=== PATIENT | male | born 1985 | race Two or more races ===

== ENCOUNTER 2021-01-03 10:43 | Emergency (ER) | payer MEDICAID, OTHER ==
[~2021-01-03] VITALS: Ht 172.7 cm; Wt 104.3 kg
[2021-01-03] MEDS ORDERED: TETRACAINE HCL 0.5% OPTH(EYE) SOLN 4ML RIGHTEYE ONE (12:00)
[2021-01-03] MEDS ORDERED: FLUORESCEIN SOD OPTH TEST STRIP RIGHTEYE ONE (12:00)
[2021-01-03 12:22] VITALS: BP 127/84
== END 2021-01-03 12:24 | disposition home or self-care (01) ==
LOC: ER 10:43
DX: S05.01XA Injury of conjunctiva and corneal abrasion without foreign body, right eye, initial encounter (principal); X58.XXXA Exposure to other specified factors, initial encounter; Y93.89 Activity, other specified; Y92.89 Other specified places as the place of occurrence of the external cause; Y99.8 Other external cause status

== ENCOUNTER 2023-03-31 12:47 | Emergency (ER) | payer MEDICAID, OTHER ==
[~2023-03-31] VITALS: Ht 165.1 cm; Wt 110.8 kg
[2023-03-31] MEDS: KETOROLAC TROMETH 60MG/2ML VIAL IM ONE (15:06)
[2023-03-31 15:51] VITALS: BP 130/69; PULSE 102; RESP 18; TEMP 98.2; O2SAT 100
[2023-03-31] MEDS: HYDROcodone-ACET 10/325MG TAB PO ONE (16:49)
[2023-03-31] MEDS: ONDANSETRON ODT 4 MG TAB PO ONE (16:49)
[2023-03-31] MEDS ORDERED: CYCL-839 PO (16:57)
[2023-03-31] MEDS ORDERED: HYDR1TAB97 PO (17:01)
[2023-03-31] MEDS: CYCLOBENZAPRINE HCL 10 MG TAB PO ONE (17:02)
== END 2023-03-31 17:19 | disposition home or self-care (01) ==
LOC: ER 12:47
DX: S43.402A Unspecified sprain of left shoulder joint, initial encounter (principal); Z79.899 Other long term (current) drug therapy; X50.1XXA Overexertion from prolonged static or awkward postures, initial encounter; Y93.89 Activity, other specified; Y92.89 Other specified places as the place of occurrence of the external cause; Y99.8 Other external cause status
CPT/HCPCS: 73200; 96372; 99285; J1885; Q0162

== ENCOUNTER → 2023-10-09 | Outpatient (CLI) | payer BC ==
[~2023-10-09] MED LIST: CYCL-839 PO; HYDR1TAB97 PO
[2023-10-09 15:48] LABS: Urine Bacteria None Seen /hpf (None Seen)
[2023-10-09 15:50] LABS: Basophils # (auto) 0 10 ^3/uL (0-0.2); Basophils % (auto) 0.3 % (0.0-2.0); Eosinophils # (auto) 0.4 10 ^3/uL (0-0.8); Eosinophils % (auto) 4.7 % (0.0-7.0); Hemoglobin 12.3 g/dL (13.5-17.5); Lymphocytes % (auto) 24.3 % (10.0-50.0); Mean Corpuscular Hemoglobin 27.8 pg (28.0-32.0); Mean Corpuscular Hgb Conc. 33.2 g/dL (32.0-36.0); Mean Corpuscular Volume 83.9 fL (80.0-100.0); Monocytes # (auto) 0.7 10 ^3/uL (0-1.3); Monocytes % (auto) 8.8 % (0.0-12.0); Neutrophils # (auto) 5.1 10 ^3/uL (1.6-8.6); Neutrophils % (auto) 61.9 % (37.0-80.0); Platelet Count (auto) 208 10^3/uL (140-450); Red Blood Cells 4.41 10^6/uL (4.5-5.90); Red Cell Distribution Width 14.1 % (11.8-14.3); White Blood Cell 8.3 10^3/uL (4.4-10.8)
[2023-10-09 15:59] LABS: Urine Blood 3+ /uL (Negative); Urine Clarity Clear (Clear); Urine Color Light-Yellow (Yellow); Urine Hyaline Cast FEW /lpf (0 - 2); Urine Mucus FEW (None Seen); Urine Protein, UAD 2+ (Negative); Urine Specific Gravity 1.024 (1.001-1.035); Urine Urobilinogen Normal (Negative); Urine WBC <1 /hpf (0 - 3); Urine pH 5.5 (5.0-9.0)
[2023-10-09 16:25] LABS: Alanine Aminotransferase 21 U/L (7-40); Albumin 3.9 g/dL (3.2-4.8); Alkaline Phosphatase 70 U/L (46-116); Anion Gap 4 (5-15); Aspartate Aminotransferase 19 U/L (13-40); BUN/Creatinine Ratio 12.2 (10.0-20.0); Bilirubin, Total 0.4 mg/dL (0.2-1.0); Blood Urea Nitrogen 14 mg/dL (9-23); Calcium 9.1 mg/dL (8.7-10.4); Carbon Dioxide 23 mmol/L (20-30); Chloride 109 mmol/L (98-107); Glucose 104 mg/dL (74-106); Potassium 3.7 mmol/L (3.5-5.1); Sodium 136 mmol/L (136-145)
[2023-10-09 16:26] LABS: Total Protein 6.8 g/dL (5.7-8.2)
== END | disposition home or self-care (01) ==
LOC: LAB 15:37
PROVIDERS: ATTEND Internal Medicine
DX: Z00.00 Encounter for general adult medical examination without abnormal findings (principal); Z29.9 Encounter for prophylactic measures, unspecified
CPT/HCPCS: 36415; 80053; 81001; 83036; 84439; 84443; 85025

== ENCOUNTER → 2023-11-20 | Outpatient (CLI) | payer BC ==
[2023-11-20 16:26] LABS: Urine Bacteria None Seen /hpf (None Seen)
[2023-11-20 16:57] LABS: Basophils # (auto) 0.1 10 ^3/uL (0-0.2); Basophils % (auto) 1.2 % (0.0-2.0); Eosinophils # (auto) 0.4 10 ^3/uL (0-0.8); Eosinophils % (auto) 4.6 % (0.0-7.0); Hematocrit 33.6 % (41.0-53.0); Hemoglobin 11.5 g/dL (13.5-17.5); Lymphocytes # (auto) 2.1 10 ^3/uL (0.4-5.4); Lymphocytes % (auto) 24.4 % (10.0-50.0); Mean Corpuscular Hemoglobin 28.1 pg (28.0-32.0); Mean Corpuscular Hgb Conc. 34.1 g/dL (32.0-36.0); Mean Corpuscular Volume 82.4 fL (80.0-100.0); Monocytes # (auto) 0.8 10 ^3/uL (0-1.3); Monocytes % (auto) 9.4 % (0.0-12.0); Neutrophils # (auto) 5.1 10 ^3/uL (1.6-8.6); Neutrophils % (auto) 60.4 % (37.0-80.0); Platelet Count (auto) 349 10^3/uL (140-450); Red Blood Cells 4.08 10^6/uL (4.5-5.90); Red Cell Distribution Width 13.4 % (11.8-14.3); White Blood Cell 8.4 10^3/uL (4.4-10.8)
[2023-11-20 17:20] LABS: Alanine Aminotransferase 29 U/L (7-40); Alkaline Phosphatase 65 U/L (46-116); Anion Gap 9 (5-15); Aspartate Aminotransferase 20 U/L (13-40); BUN/Creatinine Ratio 13.1 (10.0-20.0); Blood Urea Nitrogen 17 mg/dL (9-23); Calcium 9.4 mg/dL (8.7-10.4); Carbon Dioxide 24 mmol/L (20-31); Chloride 107 mmol/L (98-107); Creatinine, Urine 192.75 mg/dL (30.0-125.0); Glucose 101 mg/dL (74-106); Potassium 3.6 mmol/L (3.5-5.1); Sodium 140 mmol/L (136-145); Urine Blood 3+ /uL (Negative); Urine Clarity Clear (Clear); Urine Color Light-Yellow (Yellow); Urine Mucus FEW (None Seen); Urine Protein, UAD 2+ (Negative); Urine Specific Gravity 1.023 (1.001-1.035); Urine Urobilinogen Normal (Negative); Urine WBC 11 /hpf (0 - 3); Urine pH 5.5 (5.0-9.0)
[2023-11-20 17:21] LABS: Albumin 4.2 g/dL (3.2-4.8)
[2023-11-20 17:22] LABS: Bilirubin, Total 0.3 mg/dL (0.2-1.0); Creatine Kinase IFCC 68 U/L (46-171); Total Protein 7.4 g/dL (5.7-8.2)
[2023-11-20 17:24] LABS: Protein, Urine 295.8 mg/dL (1-14); Urine Protein/Creatinine Ratio 1.53
[2023-11-20 17:30] LABS: CRP High Sensitivity 2.89 mg/dL (<1.0)
[2023-11-20 17:46] LABS: Erythrocyte Sedimentation Rate 84 mm/hr (0-20)
[2023-11-21 08:06] LABS: Immunoglobulin A 237 mg/dL (90-386); Immunoglobulin G, Serum 1449 mg/dL (603-1613); Immunoglobulin M 170 mg/dL (20-172)
[2023-11-21 10:07] LABS: Albumin 3.1 g/dL (2.9-4.4); Alpha-1-Globulin 0.3 g/dL (0.0-0.4); Alpha-2-Globulin 0.9 g/dL (0.4-1.0); Gamma Globulin 1.4 g/dL (0.4-1.8); Globulin Total 3.5 g/dL (2.2-3.9); Protein Total Serum 6.6 g/dL (6.0-8.5)
[2023-11-22 09:02] LABS: Hepatitis B Surface Antigen Negative (Negative)
[2023-11-22 09:23] LABS: Hepatitis B Core IgM Negative
[2023-11-22 15:07] LABS: Beta-2-Microglobulin 2.4 mg/L (0.6-2.4)
[2023-11-22 19:07] LABS: Antiglomerular BM Antibody <0.2 units (0.0-0.9); Antimyeloperoxidase (MPO) Ab >8.0 units (0.0-0.9); Antiproteinase 3 (PR-3) Ab <0.2 units (0.0-0.9)
[2023-11-23 21:06] LABS: Anticardiolipin IgG Antibody <9 GPL U/mL (0-14); Anticardiolipin IgM Antibody 11 MPL U/mL (0-12)
== END | disposition home or self-care (01) ==
LOC: LAB 15:34
PROVIDERS: ATTEND Internal Medicine Rheumatology
DX: M05.79 Rheumatoid arthritis with rheumatoid factor of multiple sites without organ or systems involvement (principal)
CPT/HCPCS: 36415; 80053; 81001; 82232; 82550; 82570; 82784; 83520; 84155; 84156; 84165; 85025; 85613; 85652; 85670; 85705; 85732; 86141; 86147; 86256; 86334; 86703; 86705; 87340; 87536

== ENCOUNTER → 2024-01-15 | Outpatient (CLI) | payer BC ==
[2024-01-15 11:56] LABS: Basophils # (auto) 0.1 10 ^3/uL (0-0.2); Basophils % (auto) 0.8 % (0.0-2.0); Eosinophils # (auto) 0.2 10 ^3/uL (0-0.8); Eosinophils % (auto) 1.7 % (0.0-7.0); Hematocrit 36.4 % (41.0-53.0); Hemoglobin 12.1 g/dL (13.5-17.5); Lymphocytes # (auto) 2.9 10 ^3/uL (0.4-5.4); Lymphocytes % (auto) 22.1 % (10.0-50.0); Mean Corpuscular Hemoglobin 27.8 pg (28.0-32.0); Mean Corpuscular Hgb Conc. 33.3 g/dL (32.0-36.0); Mean Corpuscular Volume 83.4 fL (80.0-100.0); Monocytes % (auto) 7.8 % (0.0-12.0); Neutrophils % (auto) 67.6 % (37.0-80.0); Nucleated Red Blood Cells % 0.1 %; Platelet Count (auto) 293 10^3/uL (140-450); Red Blood Cells 4.37 10^6/uL (4.5-5.90); Red Cell Distribution Width 14.9 % (11.8-14.3); White Blood Cell 13.3 10^3/uL (4.4-10.8)
[2024-01-15 12:37] LABS: Alanine Aminotransferase 25 U/L (7-40); Albumin 3.8 g/dL (3.2-4.8); Alkaline Phosphatase 64 U/L (46-116); Anion Gap 8 (5-15); Aspartate Aminotransferase 16 U/L (13-40); Bilirubin, Total 0.2 mg/dL (0.2-1.0); Blood Urea Nitrogen 17 mg/dL (9-23); Calcium 9.3 mg/dL (8.7-10.4); Carbon Dioxide 24 mmol/L (20-31); Chloride 109 mmol/L (98-107); Glucose 108 mg/dL (74-106); Potassium 3.7 mmol/L (3.5-5.1); Sodium 141 mmol/L (136-145); Total Protein 6.6 g/dL (5.7-8.2)
[2024-01-15 13:22] LABS: Folate (Folic Acid) 12.56 ng/mL (>5.38)
[2024-01-15 13:23] LABS: Ferritin 98.5 ng/mL (22-322)
== END | disposition home or self-care (01) ==
LOC: LAB 10:58
PROVIDERS: ATTEND Internal Medicine
DX: M06.9 Rheumatoid arthritis, unspecified
CPT/HCPCS: 36415; 80053; 82607; 82728; 82746; 83540; 83550; 83615; 85025

== ENCOUNTER → 2024-03-03 | Outpatient (CLI) | payer BC ==
[2024-03-03 14:49] LABS: Basophils # (auto) 0 10 ^3/uL (0-0.2); Basophils % (auto) 0.5 % (0.0-2.0); Eosinophils # (auto) 0 10 ^3/uL (0-0.8); Eosinophils % (auto) 0.2 % (0.0-7.0); Hemoglobin 12.7 g/dL (13.5-17.5); Lymphocytes # (auto) 0.8 10 ^3/uL (0.4-5.4); Lymphocytes % (auto) 9.9 % (10.0-50.0); Mean Corpuscular Hemoglobin 28.5 pg (28.0-32.0); Mean Corpuscular Hgb Conc. 33.4 g/dL (32.0-36.0); Mean Corpuscular Volume 85.3 fL (80.0-100.0); Monocytes # (auto) 0.4 10 ^3/uL (0-1.3); Neutrophils # (auto) 7.1 10 ^3/uL (1.6-8.6); Neutrophils % (auto) 84.4 % (37.0-80.0); Platelet Count (auto) 249 10^3/uL (140-450); Red Blood Cells 4.46 10^6/uL (4.5-5.90); Red Cell Distribution Width 17.3 % (11.8-14.3); White Blood Cell 8.4 10^3/uL (4.4-10.8)
[2024-03-03 15:02] LABS: INR 0.97 (0.9-1.15); Partial Thromboplastin Time 28.7 SEC (24.5-34.5); Prothrombin Time 10.3 sec (9.3-11.8)
[2024-03-03 15:43] LABS: Alanine Aminotransferase 29 U/L (7-40); Albumin 4.1 g/dL (3.2-4.8); Alkaline Phosphatase 59 U/L (46-116); Anion Gap 7 (5-15); Aspartate Aminotransferase 23 U/L (13-40); BUN/Creatinine Ratio 14.2 (10.0-20.0); Blood Urea Nitrogen 20 mg/dL (9-23); Calcium 9.4 mg/dL (8.7-10.4); Carbon Dioxide 25 mmol/L (20-31); Chloride 107 mmol/L (98-107); Potassium 4.2 mmol/L (3.5-5.1); Sodium 139 mmol/L (136-145)
[2024-03-03 15:44] LABS: Total Protein 6.9 g/dL (5.7-8.2)
[2024-03-03 15:48] LABS: Bilirubin, Total 0.3 mg/dL (0.2-1.0); Glucose 115 mg/dL (74-106)
== END | disposition home or self-care (01) ==
LOC: LAB 14:29
PROVIDERS: ATTEND Internal Medicine
DX: Z01.812 Encounter for preprocedural laboratory examination (principal); N18.2 Chronic kidney disease, stage 2 (mild)
CPT/HCPCS: 36415; 80053; 85025; 85610; 85730

== ENCOUNTER → 2024-03-04 | Outpatient (CLI) | payer BC ==
[2024-03-04] VITALS (8 sets, daily range): BP systolic 97–108; BP diastolic 52–76; PULSE 55–67; RESP 12–21; O2SAT 93–97
[~2024-03-04] MED LIST changes: +MIDAZOLAM HCL 2MG/2ML 2ml VIAL (1mg/ml) IV ONE; +MIDAZOLAM HCL 2MG/2ML 2ml VIAL (1mg/ml) ONE; +TRAM50TA2 PO; +fentaNYL CITRATE 100 MCG/2 ML VL IV ONE; +fentaNYL CITRATE 100 MCG/2 ML VL ONE
--- NOTE | 2024-03-04 10:43 | DVH ---
US US GUIDANCE FOR NEEDLE PLACEME, HISTORY: RHEUMATOID ARTHRITIS , UNSPECIFIED PROCEDURE: Informed consent was obtained. Limited ultrasound of the left kidney was obtained. The ov erlying skin was prepped with chlorhexidine which was allowed to dry and draped in the usual sterile fashion. Time out was performed. The skin and soft tissue were infiltrated with 1% lidocaine, and IV sedation was administered. Under real-time ultrasound guidance, 1 biopsy specimen was obtained using Biopince 18 gauge core biopsy needle. Post biopsy scan was performed. No immediate complication was n oted. SEDATION: Dr. Kendall Feliciano was personally responsible for the administration of moderate sedation during the procedure performed, including the use of an independent trained observer who had no other duties during the procedure. The drugs utilized were IV fentanyl and versed (see nursing log for details). The total time of supervision by the attending physician was approximately 30 minutes. FINDINGS: Limited intraprocedural ultrasound demonstrates biopsy needle within the lower renal cortex of left kidney. No significant post procedural hematoma is noted. IMPRESSION: Ultrasound biopsy of the left kidney. Pathology results pending. 3 hours bedrest supine position recovery.
== END | disposition home or self-care (01) ==
LOC: US 08:42
PROVIDERS: ATTEND Internal Medicine
DX: M06.9 Rheumatoid arthritis, unspecified (principal); R80.9 Proteinuria, unspecified
CPT/HCPCS: 76775; 76942; J2250; J3010

== ENCOUNTER 2024-03-07 09:32 | Inpatient (IN) | payer BC ==
[~2024-03-07] VITALS: Ht 165.1 cm; Wt 244.0 kg
[~2024-03-07 09:32] MED LIST changes: -MIDAZOLAM HCL 2MG/2ML 2ml VIAL (1mg/ml) IV ONE; -MIDAZOLAM HCL 2MG/2ML 2ml VIAL (1mg/ml) ONE; -TRAM50TA2 PO; -fentaNYL CITRATE 100 MCG/2 ML VL IV ONE; -fentaNYL CITRATE 100 MCG/2 ML VL ONE
[2024-03-07 11:03] VITALS: PULSE 78; RESP 17; O2SAT 97
[2024-03-07] MEDS: SODIUM CHLORIDE 0.9% 1,000 ML IV ONE (11:17)
[2024-03-07 11:28] LABS: Urine Bacteria None Seen /hpf (None Seen)
--- NOTE | 2024-03-07 11:33 | ED.PDOC ---
History of Present Illness HPI Comments 38 year old male presents to the ED with a chief complaint of abnormal lab values onset today. Patient states he was called by Dr. Ivy, was told lab results and biopsy results were abnormal and was told to come to ED for an admission. Patient has no complaints. PMHx RA. No other symptoms or modifying factors present at this time. 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 03/31/23 Cyclobenzaprine Hcl (Cyclobenzaprine Hcl) 10 Mg Tab, 10 MG PO TID, #12 TAB 0 Refills Prov:DHARMESH IGLESIAS [facility] 03/31/23 Reported Medications Tramadol Hcl (Tramadol Hcl) 50 Mg Tab, 50 MG PO Q6HP for pain, MG 03/07/24 Information Source: Patient Mode of Arrival: Ambulatory Severity: Moderate Timing: Hours Duration: Since onset Prehospital treatment: None Past Medical History PAST MEDICAL HISTORY: Arthritis Surgical History: Denies all surgeries Family History Family History: Unknown Social History Smoker: Non-Smoker Alcohol: Denies ETOH Use Drugs: Denies Drug Use Lives In: Home Constitutional: denies: chills, diaphoresis, fatigue, fever, malaise, sweats, weakness, others EENTM: denies: blurred vision, double vision, ear bleeding, ear discharge, ear drainage, ear pain, ear ringing, eye pain, eye redness, hearing loss, mouth pa in, mouth swelling, nasal discharge, nose bleeding, nose congestion, nose pain, photophobia, tearing, throat pain, throat swelling, voice changes, others Respiratory: denies: cough, hemoptysis, orthopnea, SOB at rest, shortness of breath, SOB with excertion, stridor, wheezing, others Cardiovascular: denies: chest pain, dizzy spells, diaphoresis, Dyspnea on exertion, edema, irregular heart beat, left arm pain, lightheadedness, palpitations, PND, syncope, others Gastrointestinal: denies: abdomen distended, abdominal pain, blood streaked bowels, constipated, diarrhea, dysphagia, difficulty swallowing, hematemesis, melena, nausea, poor appetite, poor fluid intake, rectal bleeding, rectal pain, vomiting, others Genitourinary: denies: burning, dysuria, flank pain, frequency, hematuria, incontinence, penile discharge, penile sore, pain, testicle pain, testicle swelling, urgency, others Neurological: denies: dizziness, fainting, headache, left sided numbness, left sided weakness, numbness, paresthesia, pre-existing deficit, right sided numbness, right sided weakness, seizure, speech problems, tingling, tremors, weakness, others Musculoskeletal: denies: back pain, gout, joint pain, joint swelling, muscle pain, muscle stiffness, neck pain, others Integumetry: denies: bruises, change in color, change in hair/nails, dryness, laceration, lesions, lumps, rash, wounds, others Allergic/Immunocompromised: denies: Difficulty Healing, Frequent Infections, Hives, Itching, others Hematologic/Lymphatic: denies: anemia, blood clots, easy bleeding, easy bruising, swollen glands, others Endocrine: denies: excessive hunger, excessive sweating, excessive thirst, excessive urination, flushing, intolerance to cold, intolerance to heat, unexplained weight gain, unexplained weight loss, others Psychiatric: denies: anxiety, bipolar disorder, depression, hopeless, panic disorder, schizophrenia, sleepless, suicidal, others All Other Systems: Reviewed and Negative Physical Exam General Appearance: Mild Distress HEENT: Normal ENT Inspection, Pharynx Normal, TMs Normal Neck: Full Range of Motion, Non-Tender, Normal, Normal Inspection Respiratory: Chest Non-Tender, Lungs Clear, No Accessory Muscle Use, No Respiratory Distress, Normal Breath Sounds Cardiovascular: No Edema, No JVD, No Murmur, No Gallop, Normal Peripheral Pulses, Regular Rate/Rhythm Breast Exam: Deferred Gastrointestinal: No Organomegaly, Non Tender, No Pulsatile Mass, Normal Bowel Sounds, Soft, Other (Flank pain) Genitalia: Deferred Pelvic: Deferred Rectal: Deferred Extremities: No calf tenderness, Normal capillary refill, Normal inspection, Normal range of motion, Non-tender, No pedal edema Neurologic: Alert, consultant electronics II-XII nml as Tested, No Motor Deficits, Normal Affect, Normal Mood, No Sensory Deficits Cerebellar Function: Normal Reflexes: Normal Skin: Dry, Normal Color, Warm Peripheral Pulses: 1+ carotid (R), 1+ carotid (L) Lymphatic: No Adenopathy Was a procedure done? Was a procedure done?: No EKG EKG : Pulse Rate (adult): 72 [place]: Normal Cardiac Rhythm: NSR Block: RBBB Differential Dx Considerations may include: Flank pain hematuria kidney stone renal failure pyelonephritis status post biopsy X-Ray, Labs, Meds, VS Vital Signs Date Time Temp Pulse Resp B/P (MAP) Pulse Ox O2 Delivery O2 Flow Rate FiO2 03/07/24 11:07 97.6 78 17 117/83 (94) 97 97.6 03/07/24 11:07 78 17 97 Room Air 03/07/24 11:03 78 17 97 Room Air* 0 21 03/07/24 10:05 98.0 84 18 105/88 (94) 97 Lab Test 03/07/24 11:30 03/07/24 11:20 Range/Units White Blood Count 12.5 #H 4.4-10.8 10^3/uL Red Blood Count 4.56 4.5-5.90 10^6/uL Hemoglobin 13.1 L 13.5-17.5 g/dL Hematocrit 39.0 L 41.0-53.0 % Mean Corpuscular Volume 85.4 80.0-100.0 fL Mean Corpuscular Hemoglobin 28.7 28.0-32.0 pg Mean Corpuscular Hemoglobin Concent 33.6 32.0-36.0 g/dL Red Cell Distribution Width 17.5 H 11.8-14.3 % Platelet Count 250 140-450 10^3/uL Mean Platelet Volume 9.3 6.9-10.8 fL Neutrophils (%) (Auto) 66.1 37.0-80.0 % Lymphocytes (%) (Auto) 20.3 10.0-50.0 % Monocytes (%) (Auto) 10.9 0.0-12.0 % Eosinophils (%) (Auto) 1.6 0.0-7.0 % Basophils (%) (Auto) 1.1 0.0-2.0 % Neutrophils # (Auto) 8.2 1.6-8.6 10 ^3/uL Lymphocytes # (Auto) 2.5 0.4-5.4 10 ^3/uL Monocytes # (Auto) 1.4 H 0-1.3 10 ^3/uL Eosinophils # (Auto) 0.2 0-0.8 10 ^3/uL Basophils # (Auto) 0.1 0-0.2 10 ^3/uL Nucleated Red Blood Cells 0.1 % Sodium Level 141 136-145 mmol/L Potassium Level 3.7 3.5-5.1 mmol/L Chloride Level 108 H 98-107 mmol/L Carbon Dioxide Level 26 20-31 mmol/L Anion Gap 7 5-15 Blood Urea Nitrogen 19 9-23 mg/dL Creatinine 1.22 0.700-1.30 mg/dL Glomerular Filtration Rate Calc 78 >90 mL/min BUN/Creatinine Ratio 15.6 10.0-20.0 Serum Glucose 100 74-106 mg/dL Calcium Level 9.6 8.7-10.4 mg/dL Magnesium Level 1.8 1.6-2.6 mg/dL Total Bilirubin 0.6 0.2-1.0 mg/dL Aspartate Amino Transferase (AST) 19 13-40 U/L Alanine Aminotransferase (ALT) 23 7-40 U/L Alkaline Phosphatase 57 46-116 U/L Total Protein 6.5 5.7-8.2 g/dL Albumin 3.8 3.2-4.8 g/dL Lipase 36 12-53 U/L Hepatitis A IgM Antibody Pending Hepatitis B Surface Antigen Pending Hepatitis B Core IgM Antibody Pending Hepatitis C Antibody Pending Urine Color Light-yellow Yellow Urine Clarity Clear Clear Urine pH 5.5 5.0-9.0 Urine Specific [place] 1.016 1.001-1.035 Urine Protein 2+ H Negative Urine Ketones Negative Negative Urine Blood 3+ H Negative /uL Urine Nitrite Negative Negative Urine Bilirubin Negative Negative Urine Urobilinogen Normal Negative mg/dL Urine Leukocyte Esterase Negative Negative /uL Urine RBC 5 0 - 3 /hpf Urine WBC 3 0 - 3 /hpf Urine Squamous Epithelial Cells None seen <5 /hpf Urine Bacteria None seen None Seen /hpf Urine Hyaline Casts Few 0 - 2 /lpf Urine Mucus Few None Seen Urine Glucose Normal Normal mg/dL [facility] [id number] [facility] [address] Ph: [phone] DIAGNOSTIC IMAGING Diagnostic Imaging Report : [id number] Signed PATIENT: ISSA ANDERSON ACCT: [id number] UNIT: [id number] : 1985 LOC: ER ROOM / BED: / AGE / SEX: 38 / M ADM STATUS: REG ER SERVICE [id number] ORDERING PHYSICIAN: SUSANA BECK MD PROCEDURE(s): CXR2 - CHEST TWO VIEWS ROUTINE REASON: Renal failure ORDER NUMBER(s): [id number], ACCESSION NUMBER(s): [id number] CHEST RADIOGRAPH Indication: Renal failure Technique: Frontal and lateral view of the chest was obtained Comparison: CT scan of the chest dated 01/16/24 was not made available on the PAC system for viewing. FINDINGS: No pneumothorax, pulmonary edema, or consolidative infiltrates. There is central peribronchial thickening. The heart is upper limits of normal in size. There is moderate thoracic degenerative disc disease. There may be mild chronic compression fractures of T11 and L1. IMPRESSION: 1. Mild reactive airways disease. The lungs are otherwise clear. 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 from his busperson Time of 1ST Reevaluation: 11:17 Reevaluation 1ST: Unchanged Patient Education/Counseling: Diagnosis, Treatment, Prognosis Family Education/Counseling: No Family Present Additional Information The following tests were ordered, and results were reviewed by me: EKG, CBC, CMP, LIPASE, UA, MAGNESIUM, XY CHEST 2 VIEWS, I reviewed and agreed with the following test results read by other providers: XR CHEST 2 VIEWS I discussed treatment and results with medical personnel and: patient Departure 1 Departure Time of Disposition: 13:14 Impression: Primary Impression: Rheumatoid arthritis Qualified Codes: M05.761 - Rheumatoid arthritis with rheumatoid factor of right knee without organ or systems involvement Additional Impression: Flank pain Ruled Out: Renal failure Disposition: ADMITTED INPATIENT Admit to: Med Surg Condition: Fair Critical Care Note Critical Care Time?: No Stability Stability form required: No Heart Score Heart Score: Heart Score Response (Comments) Value History Slightly Suspicious 0 EKG Normal 0 Age <45 0 Risk Factors 1 or 2 risk factors 1 Troponin N/A 0 Total 1 I personally scribed for SUSANA BECK MD ([email or web address]) on 03/07/24 at 11:33. Electronically submitted by Katherine Valiente ([email or web address]). I personally scribed for SUSANA BECK MD ([email or web address]) on 03/07/24 at 12:34. Electronically submitted by Katherine Valiente ([email or web address]). SUSANA BECK MD Mar 07, 2024 11:33
[2024-03-07 11:52] LABS: Basophils # (auto) 0.1 10 ^3/uL (0-0.2); Basophils % (auto) 1.1 % (0.0-2.0); Eosinophils # (auto) 0.2 10 ^3/uL (0-0.8); Eosinophils % (auto) 1.6 % (0.0-7.0); Hemoglobin 13.1 g/dL (13.5-17.5); Lymphocytes # (auto) 2.5 10 ^3/uL (0.4-5.4); Lymphocytes % (auto) 20.3 % (10.0-50.0); Mean Corpuscular Hemoglobin 28.7 pg (28.0-32.0); Mean Corpuscular Hgb Conc. 33.6 g/dL (32.0-36.0); Mean Corpuscular Volume 85.4 fL (80.0-100.0); Monocytes # (auto) 1.4 10 ^3/uL (0-1.3); Monocytes % (auto) 10.9 % (0.0-12.0); Neutrophils # (auto) 8.2 10 ^3/uL (1.6-8.6); Neutrophils % (auto) 66.1 % (37.0-80.0); Nucleated Red Blood Cells % 0.1 %; Platelet Count (auto) 250 10^3/uL (140-450); Red Blood Cells 4.56 10^6/uL (4.5-5.90); Red Cell Distribution Width 17.5 % (11.8-14.3); White Blood Cell 12.5 10^3/uL (4.4-10.8)
[2024-03-07 11:56] LABS: Urine Blood 3+ /uL (Negative); Urine Clarity Clear (Clear); Urine Color Light-Yellow (Yellow); Urine Hyaline Cast FEW /lpf (0 - 2); Urine Mucus FEW (None Seen); Urine Protein, UAD 2+ (Negative); Urine Specific Gravity 1.016 (1.001-1.035); Urine Squamous Epithelial Cell None Seen /hpf (<5); Urine Urobilinogen Normal (Negative); Urine WBC 3 /hpf (0 - 3); Urine pH 5.5 (5.0-9.0)
[2024-03-07 12:07] LABS: Alanine Aminotransferase 23 U/L (7-40); Albumin 3.8 g/dL (3.2-4.8); Alkaline Phosphatase 57 U/L (46-116); Anion Gap 7 (5-15); Aspartate Aminotransferase 19 U/L (13-40); BUN/Creatinine Ratio 15.6 (10.0-20.0); Blood Urea Nitrogen 19 mg/dL (9-23); Calcium 9.6 mg/dL (8.7-10.4); Carbon Dioxide 26 mmol/L (20-31); Glucose 100 mg/dL (74-106); Lipase 36 U/L (12-53); Magnesium 1.8 mg/dL (1.6-2.6); Potassium 3.7 mmol/L (3.5-5.1); Sodium 141 mmol/L (136-145)
[2024-03-07 12:08] LABS: Bilirubin, Total 0.6 mg/dL (0.2-1.0); Total Protein 6.5 g/dL (5.7-8.2)
[2024-03-07 12:11] LABS: Chloride 108 mmol/L (98-107)
--- NOTE | 2024-03-07 12:19 | DVH ---
CHEST RADIOGRAPH Indication: Renal failure Technique: Frontal and lateral view of the chest was obtained Comparison: CT scan of the chest dated 01/16/24 was not made available on the PAC system for viewing . FINDINGS: No pneumothorax, pulmonary edema, or consolidative infiltrates. There is central peribronchial thick ening. The heart is upper limits of normal in size. There is moderate thoracic degenerative disc di sease. There may be mild chronic compression fractures of T11 and L1. IMPRESSION: 1. Mild reactive airways disease. The lungs are otherwise clear.
[2024-03-07] MEDS ORDERED: methylPREDNISolone SOD SUCC 125 MG/2 ML VL IV ONE (12:30)
[2024-03-07] MEDS ORDERED: RITUXIMAB 1000 MG IV ONE (12:45)
[2024-03-07] MEDS ORDERED: IBUPROFEN 600 MG TAB PO PRN (13:00)
--- NOTE | 2024-03-07 13:21 | DVHHP2 ---
History of Present Illness Reason for Visit: Abnormal labs History of Present Illness Ella Jasso is a 38-year-old male with a past medical history of autoimmune nephritis, microscopic polyarteritis and rheumatoid arthritis who presents with abnormal labs and biopsy results yesterday. Patient reports that his doctor advised him that he was going to start on rituximab. Patient denies of any chest pain, shortness of breath, abdominal pain, fever, chills, nausea, vomiting, diarrhea, and weakness. Rheumatologic: Rheumatoid arthritis Past Medical History Autoimmune nephritis Microscopic polyarteritis Past Surgical History: None Family History: None Smoke: No ALCOHOL: none Drugs: None Lives: with Family Domestic Violence: Neg Review of Systems Constitutional: No: Fever, Chills, Sweats, Weakness, Malaise, Other Eyes: No: Pain, Vision change, Conjunctivae inflammation, Eyelid inflammation, Other, Redness ENT: No: Ear pain, Ear discharge, Nose pain, Nose discharge, Nose congestion, Mouth pain, Mouth swelling, Throat pain, Throat swelling, Other Respiratory: No: Cough, Dry, Shortness of breath, SOB with excertion, Wheezing, Hemoptysis, Pleuritic Pain, Sputum, Wheezing, Other Cardiovascular: No: Chest Pain, Palpitations, Orthopnea, Paroxysmal Noc. Dyspnea, Edema, Lt Headedness, Other Gastrointestinal: No: Nausea, Vomiting, Abdominal Pain, Diarrhea, Constipation, Melena, Hematochezia, Other Genitourinary: No Dysuria, No Frequency, No Incontinence, No Hematuria, No Retention, No Other Musculoskeletal: No: other, neck pain, shoulder pain, arm pain, back pain, hand pain, leg pain, foot pain Skin: No: Rash, Lesions, Jaundice, Bruising, Other Neurological: No: Weakness, Numbness, Incoordination, Change in speech, Confusion, Seizures, Other Allergies: Coded Allergies: NO KNOWN ALLERGIES (Unverified , 01/03/21) Medications Current Medications Medications Dose Ordered Sig/[place] Route Start Time Stop Time Status Last Admin Dose Admin Methylprednisolone Sodium Succinate 1,000 mg ONCE IV 03/07/24 12:30 03/09/24 12:31 UNV Exam Vital Signs Vital Signs Date Time Temp Pulse Resp B/P (MAP) Pulse Ox O2 Delivery O2 Flow Rate FiO2 03/07/24 11:07 97.6 78 17 117/83 (94) 97 97.6 03/07/24 11:07 Room Air 03/07/24 11:03 0 21 General Appearance: Alert, Oriented X3, Cooperative, mild distress HEENT: Atraumatic, PERRLA, EOMI, Mucous membr. moist/pink Respiratory: Normal air movement Cardiovascular: Normal S1, Normal S2, No murmurs Abdominal: Normal bowel sounds, Soft, No tenderness, No hepatospenomegaly, No masses Skin: No significant lesion Neuro: Normal gait, Normal speech, Strength at 5/5 X4 ext, Normal tone, Sensa tion intact Psych/Mental Status: Mental status NL, Mood NL Labs/Xrays Labs Test 03/07/24 11:30 03/07/24 11:20 Range/Units White Blood Count 12.5 #H 4.4-10.8 10^3/uL Red Blood Count 4.56 4.5-5.90 10^6/uL Hemoglobin 13.1 L 13.5-17.5 g/dL Hematocrit 39.0 L 41.0-53.0 % Mean Corpuscular Volume 85.4 80.0-100.0 fL Mean Corpuscular Hemoglobin 28.7 28.0-32.0 pg Mean Corpuscular Hemoglobin Concent 33.6 32.0-36.0 g/dL Red Cell Distribution Width 17.5 H 11.8-14.3 % Platelet Count 250 140-450 10^3/uL Mean Platelet Volume 9.3 6.9-10.8 fL Neutrophils (%) (Auto) 66.1 37.0-80.0 % Lymphocytes (%) (Auto) 20.3 10.0-50.0 % Monocytes (%) (Auto) 10.9 0.0-12.0 % Eosinophils (%) (Auto) 1.6 0.0-7.0 % Basophils (%) (Auto) 1.1 0.0-2.0 % Neutrophils # (Auto) 8.2 1.6-8.6 10 ^3/uL Lymphocytes # (Auto) 2.5 0.4-5.4 10 ^3/uL Monocytes # (Auto) 1.4 H 0-1.3 10 ^3/uL Eosinophils # (Auto) 0.2 0-0.8 10 ^3/uL Basophils # (Auto) 0.1 0-0.2 10 ^3/uL Nucleated Red Blood Cells 0.1 % Sodium Level 141 136-145 mmol/L Potassium Level 3.7 3.5-5.1 mmol/L Chloride Level 108 H 98-107 mmol/L Carbon Dioxide Level 26 20-31 mmol/L Anion Gap 7 5-15 Blood Urea Nitrogen 19 9-23 mg/dL Creatinine 1.22 0.700-1.30 mg/dL Glomerular Filtration Rate Calc 78 >90 mL/min BUN/Creatinine Ratio 15.6 10.0-20.0 Serum Glucose 100 74-106 mg/dL Calcium Level 9.6 8.7-10.4 mg/dL Magnesium Level 1.8 1.6-2.6 mg/dL Total Bilirubin 0.6 0.2-1.0 mg/dL Aspartate Amino Transferase (AST) 19 13-40 U/L Alanine Aminotransferase (ALT) 23 7-40 U/L Alkaline Phosphatase 57 46-116 U/L Total Protein 6.5 5.7-8.2 g/dL Albumin 3.8 3.2-4.8 g/dL Lipase 36 12-53 U/L Urine Color Light-yellow Yellow Urine Clarity Clear Clear Urine pH 5.5 5.0-9.0 Urine Specific [place] 1.016 1.001-1.035 Urine Protein 2+ H Negative Urine Ketones Negative Negative Urine Blood 3+ H Negative /uL Urine Nitrite Negative Negative Urine Bilirubin Negative Negative Urine Urobilinogen Normal Negative mg/dL Urine Leukocyte Esterase Negative Negative /uL Urine RBC 5 0 - 3 /hpf Urine WBC 3 0 - 3 /hpf Urine Squamous Epithelial Cells None seen <5 /hpf Urine Bacteria None seen None Seen /hpf Urine Hyaline Casts Few 0 - 2 /lpf Urine Mucus Few None Seen Urine Glucose Normal Normal mg/dL CHEST RADIOGRAPH Indication: Renal failure Technique: Frontal and lateral view of the chest was obtained Comparison: CT scan of the chest dated 01/16/24 was not made available on the PAC system for viewing. FINDINGS: No pneumothorax, pulmonary edema, or consolidative infiltrates. There is central peribronchial thickening. The heart is upper limits of normal in size. There is moderate thoracic degenerative disc disease. There may be mild chronic compression fractures of T11 and L1. IMPRESSION: 1. Mild reactive airways disease. The lungs are otherwise clear. Assessment/Plan Assessment/Plan Assessment/Plan: Autoimmune nephritis Rheumatoid arthritis Microscopic polyarteritis Leukocytosis likely due to biopsy recently Hematuria Proteinuria Chest x-ray IV Solu-Medrol given in ED EKG Magnesium level UA Lipase Labs A.m. labs Rheumatology consult Nephrology consult Hepatitis panel Antiemetics Pain management IV antibiotics-ceftriaxone Morbid Obesity Counseled patient on lifestyle medications, diet, and exercise FEN/PPX cardiac diet hl DVT ppx -not indicated patient ambulating PUD ppx -no history of GERD or GI bleed Home medications reconciled Discussed plan of care with patient and nurse Admit to [facility] [place] Plan discussed with: Patient My Orders Orders - ELISABETH MOSQUEDA Procedure Category Date Status Time Allergies CATHRYN 03/07/24 Verified 12:49 Complete Blood Count LAB 03/08/24 Verified 04:00 Comprehensive LAB 03/08/24 Verified Metabolic Panel 04:00 Cardiac DIET 03/07/24 Verified Diet-2gna,Lofat,Lochol Lunch Admit ADMIT 03/07/24 Verified 12:49 Allergies CATHRYN 03/07/24 Verified 12:49 Code Status CODE 03/07/24 Verified 12:49 Date of Service: Mar 07, 2024 Billing Provider: ELISABETH MOSQUEDA Common Visit Codes: [id number] INP/OBS CARE (HIGH) ELISABETH MOSQUEDA Mar 07, 2024 13:21
[2024-03-07] MEDS ORDERED: ACETAMINOPHEN 325 MG TAB PO PRN (13:30)
[2024-03-07] MEDS ORDERED: ONDANSETRON HCL 4 MG/2 ML VIAL IV PRN (13:30)
[2024-03-07 13:44] VITALS: BP 113/79; PULSE 72; RESP 18; TEMP 98.2; O2SAT 97
[2024-03-07] MEDS: cefTRIAXone 1GM/50ML D5W 50 ML IV ONE (14:41)
[2024-03-07] MEDS ORDERED: methylPREDNISolone SOD SUCC 1,000 MG VL IV ONE (15:15)
[2024-03-07] MEDS: methylPREDNISolone SOD SUCC 1,000 MG in SODIUM CHL 0.9% 250 ML IV ONE (16:06)
[2024-03-07 17:40] VITALS: BP 139/86; PULSE 68; RESP 18; TEMP 98; O2SAT 100
[2024-03-07] MEDS ORDERED: TRAM50TA2 PO (17:59)
--- NOTE | 2024-03-07 20:45 | DVHINCON2 ---
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 Past Medical History As per HPI Past Surgical History Denies any Allergies: Coded Allergies: NO KNOWN ALLERGIES (Unverified , 01/03/21) Home Meds Active Scripts Hydrocodone-Acetaminophen (Hydrocodone/Acetaminophen 5-325 mg) 1 Tab Tab, 1 TAB PO Q6HPRN PRN, #12 TAB 0 Refills Prov:DHARMESH IGLESIAS [facility] 03/31/23 Cyclobenzaprine Hcl (Cyclobenzaprine Hcl) 10 Mg Tab, 10 MG PO TID, #12 TAB 0 Re fills Prov:DHARMESH IGLESIAS [facility] 03/31/23 Reported Medications Tramadol Hcl (Tramadol Hcl) 50 Mg Tab, 50 MG PO Q6HP for pain, MG 03/07/24 Current Medications Current Medications Medications (Trade) Dose Ordered Sig/Gustabo Route PRN Reason Start Time Stop Time Status Last Admin Ibuprofen (Motrin Tablet) 600 mg Q8HP PRN PO MILD PAIN (1-3 PAIN SCALE) 03/07/24 13:00 03/07/24 13:14 DC Ceftriaxone Sodium 50 ml @ 100 mls/hr DAILY@09 IV 03/08/24 09:00 Ondansetron HCl (Zofran) 4 mg Q6HPRN PRN IV NAUSEA / VOMITING 03/07/24 13:30 Acetaminophen (Tylenol Tablet) 650 mg Q4HP PRN PO MILD PAIN (1-3 PAIN SCALE) 03/07/24 13:30 Family History: Patient reports no known family medical history. Family History Patient has two daughters 10 and 8years old Social History Denies any Review of Systems HEENT-denies headache, denies vision changes, no hearing issue, denies neck complaints, denies throat issues Respiratory system-denies cough, denies shortness of breath Cardiovascular system-denies chest pain, denies palpitations Abdomen-denies abdominal pain, denies nausea, denies vomiting, denies constipation or diarrhea Musculoskeletal-positive pain in both hands, redness and tenderness fingers Genitourinary-denies urinary symptoms like dysuria, stream issues Neuro-denies dizziness, denies seizures Psychiatric-denies psychiatric history H&P Exam Vital Signs/I&O Vital Sign Date Time Temp Pulse Resp B/P (MAP) Pulse Ox O2 Delivery O2 Flow Rate FiO2 03/07/24 17:40 98.0 68 18 139/86 (103) 100 98.0 03/07/24 13:44 Room Air* 0 21 Physical Exam General-not in any distress HEENT-normocephalic, no icterus, no pallor, neck supple Respiratory-fair air entry bilateral, no rhonchi, no wheeze [id number] heard, no murmurs appreciated Abdominal-soft, nontender, nondistended Musculoskeletal-bilateral hands swelling redness tender Genitourinary-deferred Neuro-awake alert oriented x3, Psychiatric-not agitated, cooperative, Labs/Diagnostic Data Labs/Diagnostic Data Laboratory Tests Test 03/07/24 11:30 03/07/24 11:20 Range/Units White Blood Count 12.5 #H 4.4-10.8 10^3/uL Red Blood Count 4.56 4.5-5.90 10^6/uL Hemoglobin 13.1 L 13.5-17.5 g/dL Hematocrit 39.0 L 41.0-53.0 % Mean Corpuscular Volume 85.4 80.0-100.0 fL Mean Corpuscular Hemoglobin 28.7 28.0-32.0 pg Mean Corpuscular Hemoglobin Concent 33.6 32.0-36.0 g/dL Red Cell Distribution Width 17.5 H 11.8-14.3 % Platelet Count 250 140-450 10^3/uL Mean Platelet Volume 9.3 6.9-10.8 fL Neutrophils (%) (Auto) 66.1 37.0-80.0 % Lymphocytes (%) (Auto) 20.3 10.0-50.0 % Monocytes (%) (Auto) 10.9 0.0-12.0 % Eosinophils (%) (Auto) 1.6 0.0-7.0 % Basophils (%) (Auto) 1.1 0.0-2.0 % Neutrophils # (Auto) 8.2 1.6-8.6 10 ^3/uL Lymphocytes # (Auto) 2.5 0.4-5.4 10 ^3/uL Monocytes # (Auto) 1.4 H 0-1.3 10 ^3/uL Eosinophils # (Auto) 0.2 0-0.8 10 ^3/uL Basophils # (Auto) 0.1 0-0.2 10 ^3/uL Nucleated Red Blood Cells 0.1 % Sodium Level 141 136-145 mmol/L Potassium Level 3.7 3.5-5.1 mmol/L Chloride Level 108 H 98-107 mmol/L Carbon Dioxide Level 26 20-31 mmol/L Anion Gap 7 5-15 Blood Urea Nitrogen 19 9-23 mg/dL Creatinine 1.22 0.700-1.30 mg/dL Glomerular Filtration Rate Calc 78 >90 mL/min BUN/Creatinine Ratio 15.6 10.0-20.0 Serum Glucose 100 74-106 mg/dL Calcium Level 9.6 8.7-10.4 mg/dL Magnesium Level 1.8 1.6-2.6 mg/dL Total Bilirubin 0.6 0.2-1.0 mg/dL Aspartate Amino Transferase (AST) 19 13-40 U/L Alanine Aminotransferase (ALT) 23 7-40 U/L Alkaline Phosphatase 57 46-116 U/L Total Protein 6.5 5.7-8.2 g/dL Albumin 3.8 3.2-4.8 g/dL Lipase 36 12-53 U/L Urine Color Light-yellow Yellow Urine Clarity Clear Clear Urine pH 5.5 5.0-9.0 Urine Specific [place] 1.016 1.001-1.035 Urine Protein 2+ H Negative Urine Ketones Negative Negative Urine Blood 3+ H Negative /uL Urine Nitrite Negative Negative Urine Bilirubin Negative Negative Urine Urobilinogen Normal Negative mg/dL Urine Leukocyte Esterase Negative Negative /uL Urine RBC 5 0 - 3 /hpf Urine WBC 3 0 - 3 /hpf Urine Squamous Epithelial Cells None seen <5 /hpf Urine Bacteria None seen None Seen /hpf Urine Hyaline Casts Few 0 - 2 /lpf Urine Mucus Few None Seen Urine Glucose Normal Normal mg/dL Assessment 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
[2024-03-07 21:00] VITALS: BP 103/67; PULSE 75; RESP 18; TEMP 98; O2SAT 98
[2024-03-08 01:00] VITALS: BP 109/70; PULSE 76; RESP 18; TEMP 97.8; O2SAT 97
[2024-03-08] MEDS: traMADol HCL 50 MG TAB PO PRN (01:43)
[2024-03-08 05:00] VITALS: BP 113/69; PULSE 75; RESP 18; TEMP 98; O2SAT 95
[2024-03-08 07:23] LABS: Alanine Aminotransferase 26 U/L (7-40); Alkaline Phosphatase 57 U/L (46-116); Anion Gap 10 (5-15); BUN/Creatinine Ratio 19.8 (10.0-20.0); Blood Urea Nitrogen 23 mg/dL (9-23); Calcium 9.8 mg/dL (8.7-10.4); Carbon Dioxide 23 mmol/L (20-31); Chloride 105 mmol/L (98-107); Potassium 4.1 mmol/L (3.5-5.1); Sodium 138 mmol/L (136-145)
[2024-03-08 07:24] LABS: Aspartate Aminotransferase 18 U/L (13-40); Bilirubin, Total 0.6 mg/dL (0.2-1.0); Total Protein 6.6 g/dL (5.7-8.2)
[2024-03-08 07:25] LABS: Glucose 129 mg/dL (74-106)
[2024-03-08 07:28] LABS: Basophils # (auto) 0 10 ^3/uL (0-0.2); Basophils % (auto) 0.1 % (0.0-2.0); Eosinophils # (auto) 0 10 ^3/uL (0-0.8); Hematocrit 39.1 % (41.0-53.0); Hemoglobin 12.9 g/dL (13.5-17.5); Lymphocytes # (auto) 1.1 10 ^3/uL (0.4-5.4); Lymphocytes % (auto) 8.5 % (10.0-50.0); Mean Corpuscular Hemoglobin 27.9 pg (28.0-32.0); Mean Corpuscular Volume 84.7 fL (80.0-100.0); Monocytes # (auto) 0.1 10 ^3/uL (0-1.3); Monocytes % (auto) 0.8 % (0.0-12.0); Neutrophils # (auto) 12.2 10 ^3/uL (1.6-8.6); Neutrophils % (auto) 90.6 % (37.0-80.0); Nucleated Red Blood Cells % 0.1 %; Platelet Count (auto) 249 10^3/uL (140-450); Red Blood Cells 4.61 10^6/uL (4.5-5.90); Red Cell Distribution Width 17.4 % (11.8-14.3); White Blood Cell 13.4 10^3/uL (4.4-10.8)
--- NOTE | 2024-03-08 08:02 | DVHPN2 ---
Subjective Decreasing hand swelling and pain; more urine output Reviewed: Care Plan, H&P, Labs, Medications, Previous Orders, Radiology, Other (Consultations) Changes from previous H/P or p: Changes Objective Vitals Vital Signs Date Time Temp Pulse Resp B/P (MAP) Pulse Ox O2 Delivery O2 Flow Rate FiO2 03/08/24 05:00 98.0 75 18 113/69 (84) 95 98.0 03/07/24 20:00 Room Air* 0 21 Intake/Output Intake and Output 03/08/24 07:00 Intake Total 500 ml Balance 500 ml Intake Oral 500 ml # Voids 2 # Bowel Movements 1 General Appearance: Alert, Oriented X3, Cooperative, No acute distress HEENT: Atraumatic Lungs: Clear to auscultation, Normal air movement Cardiovascular: Regular rate, Normal S1, Normal S2 Abdomen: Normal bowel sounds, Soft, No tenderness Extremities: Other (Decreasing hands swelling and tenderness) Neuro: Normal gait, Normal speech, Strength at 5/5 X4 ext, Normal tone, S ensation intact, Cranial nerves 3-12 NL Psych/Mental Status: Mental status NL, Mood NL Medications Current Medications Medications Dose Ordered Sig/Gustabo Route Start Time Stop Time Status Last Admin Dose Admin Ceftriaxone Sodium 50 ml @ 100 mls/hr DAILY@09 IV 03/08/24 09:00 Ondansetron HCl 4 mg Q6HPRN PRN IV 03/07/24 13:30 Acetaminophen 650 mg Q4HP PRN PO 03/07/24 13:30 Tramadol HCl 50 mg Q8HPRN PRN PO 03/08/24 01:00 03/08/24 01:43 50 MG Laboratory Results Laboratory Tests 03/08/24 06:25 Chemistry Test 03/07/24 11:30 03/08/24 06:25 Albumin 3.8 g/dL (3.2-4.8) 4.0 g/dL (3.2-4.8) Calcium Level 9.6 mg/dL (8.7-10.4) 9.8 mg/dL (8.7-10.4) Magnesium Level 1.8 mg/dL (1.6-2.6) Total Protein 6.5 g/dL (5.7-8.2) 6.6 g/dL (5.7-8.2) Lipid panel Test 03/07/24 11:30 Lipase 36 U/L (12-53) LFT Test 03/07/24 11:30 03/08/24 06:25 Alanine Aminotransferase (ALT) 23 U/L (7-40) 26 U/L (7-40) Alkaline Phosphatase 57 U/L (46-116) 57 U/L (46-116) Aspartate Amino Transferase (AST) 19 U/L (13-40) 18 U/L (13-40) Total Bilirubin 0.6 mg/dL (0.2-1.0) 0.6 mg/dL (0.2-1.0) Urinalysis Test 03/07/24 11:20 Urine Color Light-yellow (Yellow) Urine Clarity Clear (Clear) Urine pH 5.5 (5.0-9.0) Urine Specific [place] 1.016 (1.001-1.035) Urine Protein 2+ (Negative) H Urine Ketones Negative (Negative) Urine Blood 3+ /uL (Negative) H Urine Nitrite Negative (Negative) Urine Bilirubin Negative (Negative) Urine Urobilinogen Normal mg/dL (Negative) Urine Leukocyte Esterase Negative /uL (Negative) Urine RBC 5 /hpf (0 - 3) Urine WBC 3 /hpf (0 - 3) Urine Squamous Epithelial Cells None seen /hpf (<5) Urine Bacteria None seen /hpf (None Seen) Urine Hyaline Casts Few /lpf (0 - 2) Urine Mucus Few (None Seen) Urine Glucose Normal mg/dL (Normal) Labs and/or images reviewed: Labs reviewed by me, Image(s) reviewed by me Assessment/Plan Assessment/Plan A 38-year-old morbidly obese male patient; who is known to have rheumatoid arthritis; who recently had renal biopsy for microscopic hematuria; 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 #Suspected sepsis in the setting of leukocytosis and recent renal biopsy; continue IV antibiotics; continue monitoring #IOANA, proteinuria, and microscopic hematuria due to pauci immune glomerulonephritis with focal crescents on preliminary kidney biopsy/MPO antibody positive; nephrology is following; avoid nephrotoxic agents; strict input and output monitoring; continue IV fluids; continue IV steroids with IV methylprednisone mg daily; pending rituximab 1 g IV for one dose; rheumatology informed; continue monitoring #IOANA; can not rule out vasomotor nephropathy; in the setting of pauci immune glomerulonephritis; details and management as above; continue monitoring #Proteinuria due to pauci immune glomerulonephritis; details and management as above; continue monitoring #Hematuria due to pauci immune glomerulonephritis; details and management as above; continue monitoring #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; details and management as above; continue monitoring #Rheumatoid arthritis; management as above with IV steroids and IV rituximab; rheumatology is following; continue monitoring #Joints pain/swelling due to rheumatoid arthritis; continue pain management as indicated; continue monitoring #History of familial Mediterranean fever; rheumatology is following; continue monitoring #Morbid obesity; counseled the patient on the importance of adopting healthy lifestyle with diet and exercise in order to lose weight; continue monitoring Goals of care discussed with the patient for 20 minutes; full code. Late Entry. This medical document was created using an electronic medical record system with computerized dictation system. Although this document has been carefully reviewed, there might still be some phonetic and typographical errors. These areas are purely typographical due to imperfections of the software programs, and do not reflect any compromise in the patient's medical care. Plan discussed with: Patient, Other (Nurses) My Orders Orders - BARRY SAMANO MD Procedure Category Date Status Time *Dr. [facility] CONS 03/07/24 Transmitted -[place] 12:26 * Rheumatology Consult CONS 03/07/24 Transmitted Date of Service: Mar 08, 2024 Billing Provider: BARRY SAMANO MD Common Visit Codes: 19822-[id number] INP/OBS CARE(HIGH) Secondary Visit Codes: [id number] CARE PLAN 30 MINUTES (20 minutes) BARRY SAMANO MD Mar 08, 2024 08:02
[2024-03-08 09:00] VITALS: BP 115/61; PULSE 75; RESP 18; TEMP 98.2; O2SAT 98
[2024-03-08] MEDS: PANTOPRAZOLE 40 MG TAB PO ONE (09:48)
[2024-03-08] MEDS: cefTRIAXone 1GM/50ML D5W 50 ML IV SCH (09:48)
[2024-03-08] MEDS ORDERED: methylPREDNISolone SOD SUCC 125 MG/2 ML VL IV SCH (10:00)
[2024-03-08] MEDS ORDERED: methylPREDNISolone SOD SUCC 1,000 MG VL IV SCH (10:00)
[2024-03-08] MEDS: METHYLPREDNISOLONE SOD SUCC IV SCH (12:14)
[2024-03-08] MEDS: D5W 5% IV SCH (12:14)
[2024-03-08] MEDS: D5W 5% IV ONE (12:45)
[2024-03-08] MEDS: RITUXIMAB IV ONE (12:45)
[2024-03-08 13:00] VITALS: BP 105/69; PULSE 69; RESP 18; TEMP 98; O2SAT 98
[2024-03-08 17:00] VITALS: BP 120/64; PULSE 68; RESP 20; TEMP 98.2; O2SAT 95
--- NOTE | 2024-03-08 17:00 | DVHPN2 ---
Progress Note Date Seen: Mar 08, 2024 Medical Necessity Reason Pt with a Central, PICC or Fol: No Subjective Patient reports: Feels better Review of Systems: HEENT:Normal, CVS:Normal, RESPIRATORY:Normal, GI:Normal, :Normal, MSK:Normal, NEURO:Normal Objective vital signs Vital Sign Date Time Temp Pulse Resp B/P (MAP) Pulse Ox O2 Delivery O2 Flow Rate FiO2 03/08/24 13:00 98.0 69 18 105/69 (81) 98 98.0 03/08/24 08:00 Room Air* 0 21 Total Intake and Output 03/07/24 03/07/24 03/08/24 15:00 23:00 07:00 Intake Total 0 ml 500 ml Balance 0 ml 500 ml medications Current Medications Medications Dose Ordered Sig/Gustabo Route Start Time Stop Time Status Last Admin Dose Admin Ceftriaxone Sodium 50 ml @ 100 mls/hr DAILY@09 IV 03/08/24 09:00 03/08/24 09:48 100 MLS/HR Ondansetron HCl 4 mg Q6HPRN PRN IV 03/07/24 13:30 Acetaminophen 650 mg Q4HP PRN PO 03/07/24 13:30 Tramadol HCl 50 mg Q8HPRN PRN PO 03/08/24 01:00 03/08/24 11:05 50 MG Pantoprazole Sodium 40 mg DAILY@0600 PO 03/09/24 06:00 Methylprednisolone Sodium Succinate 1000 mg/Dextrose 258 ml @ 258 mls/hr DAILY IV 03/08/24 10:00 03/09/24 10:01 03/08/24 12:14 258 MLS/HR Examination: GENERAL:Normal, HEENT:Normal, NECK:Normal, LUNGS:Normal, CVS:Normal, ABDOMEN:Normal, MSK:Normal, SKIN:Normal, NEURO:Normal, :Normal laboratory and microbiology Laboratory Tests 03/08/24 06:25 Test 03/08/24 06:25 Range/Units Serum Glucose 129 H 74-106 mg/dL Problem List/Assessment/Plan Problem List/Assessment/Plan 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----follows in clinic Proteinuria Hematuria Rheumatoid arthritis History of familial Mediterranean fever Recommendations IV steroids methylprednisolone 1 g three days-- on dc prednisne 80mg daily then taper slowly Rituximab 1 g IV dose 1 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
[2024-03-08 21:00] VITALS: BP 105/71; PULSE 93; RESP 18; TEMP 98.2; O2SAT 98
--- NOTE | 2024-03-08 22:55 | DVHINCON2 ---
Date of service: Mar 08, [address] Hayes Reason for Consultation microscopic polyangiitis History of Present Illness 38 y/o M with MPA, RA, admitted for expedited management of crescentic pauci immune GN. Started on IV Abx, rituxan, and pulse dose steroids. Joint pain is still a problem for him. He is flying to [place] soon. Feels his pain is getting better. Denies hemoptysis, epistaxis, cough, SOB, fevers, rashes. Family History: Patient reports no known family medical history. Allergies: Coded Allergies: NO KNOWN ALLERGIES (Unverified , 01/03/21) Home Meds Active Scripts Hydrocodone-Acetaminophen (Hydrocodone/Acetaminophen 5-325 mg) 1 Tab Tab, 1 TAB PO Q6HPRN PRN, #12 TAB 0 Refills Prov:MOMO IGLESIASRA Gaspar [facility] [place] 03/31/23 Cyclobenzaprine Hcl (Cyclobenzaprine Hcl) 10 Mg Tab, 10 MG PO TID, #12 TAB 0 Ref ills Prov:IGLESIASDHARMESH [facility] [place] 03/31/23 Reported Medications Tramadol Hcl (Tramadol Hcl) 50 Mg Tab, 50 MG PO Q6HP for pain, MG 03/07/24 Current Medications Current Medications Medications (Trade) Dose Ordered Sig/Gustabo Route PRN Reason Start Time Stop Time Status Last Admin Ceftriaxone Sodium 50 ml @ 100 mls/hr DAILY@09 IV 03/08/24 09:00 03/08/24 09:48 Tramadol HCl (Ultram) 50 mg Q8HPRN PRN PO MODERATE PAIN (4-6 PAIN SCALE) 03/08/24 01:00 03/08/24 11:05 Pantoprazole Sodium (Protonix Tablet) 40 mg DAILY@0600 PO 03/09/24 06:00 Methylprednisolone Sodium Succinate (Solu Medrol) 1,000 mg DAILY IV 03/08/24 10:00 03/08/24 09:50 DC Methylprednisolone Sodium Succinate (Solu Medrol) 1,000 mg DAILY IV 03/08/24 10:00 03/08/24 09:58 DC Methylprednisolone Sodium Succinate 1000 mg/Dextrose 258 ml @ 258 mls/hr DAILY IV 03/08/24 10:00 03/09/24 10:01 03/08/24 12:14 Vital Signs Vital Signs Date Time Temp Pulse Resp B/P (MAP) Pulse Ox O2 Delivery O2 Flow Rate FiO2 03/08/24 21:00 98.2 93 18 105/71 (82) 98 98.2 03/08/24 08:00 Room Air* 0 21 Physical Exam MSK: ttp and swelling over b/l MCPs, PIPs, wrists, knees Labs/Diagnostic Data Labs Test 03/08/24 06:25 03/07/24 11:30 03/07/24 11:20 Range/Units White Blood Count 13.4 H 4.4-10.8 10^3/uL Red Blood Count 4.61 4.5-5.90 10^6/uL Hemoglobin 12.9 L 13.5-17.5 g/dL Hematocrit 39.1 L 41.0-53.0 % Mean Corpuscular Volume 84.7 80.0-100.0 fL Mean Corpuscular Hemoglobin 27.9 L 28.0-32.0 pg Mean Corpuscular Hemoglobin Concent 33.0 32.0-36.0 g/dL Red Cell Distribution Width 17.4 H 11.8-14.3 % Platelet Count 249 140-450 10^3/uL Mean Platelet Volume 9.3 6.9-10.8 fL Neutrophils (%) (Auto) 90.6 H 37.0-80.0 % Lymphocytes (%) (Auto) 8.5 L 10.0-50.0 % Monocytes (%) (Auto) 0.8 0.0-12.0 % Eosinophils (%) (Auto) 0.0 0.0-7.0 % Basophils (%) (Auto) 0.1 0.0-2.0 % Neutrophils # (Auto) 12.2 H 1.6-8.6 10 ^3/uL Lymphocytes # (Auto) 1.1 0.4-5.4 10 ^3/uL Monocytes # (Auto) 0.1 0-1.3 10 ^3/uL Eosinophils # (Auto) 0 0-0.8 10 ^3/uL Basophils # (Auto) 0 0-0.2 10 ^3/uL Nucleated Red Blood Cells 0.1 % Sodium Level 138 136-145 mmol/L Potassium Level 4.1 3.5-5.1 mmol/L Chloride Level 105 98-107 mmol/L Carbon Dioxide Level 23 20-31 mmol/L Anion Gap 10 5-15 Blood Urea Nitrogen 23 9-23 mg/dL Creatinine 1.16 0.700-1.30 mg/dL Glomerular Filtration Rate Calc 83 >90 mL/min BUN/Creatinine Ratio 19.8 10.0-20.0 Serum Glucose 129 H 74-106 mg/dL Calcium Level 9.8 8.7-10.4 mg/dL Total Bilirubin 0.6 0.2-1.0 mg/dL Aspartate Amino Transferase (AST) 18 13-40 U/L Alanine Aminotransferase (ALT) 26 7-40 U/L Alkaline Phosphatase 57 46-116 U/L Total Protein 6.6 5.7-8.2 g/dL Albumin 4.0 3.2-4.8 g/dL Magnesium Level 1.8 1.6-2.6 mg/dL Lipase 36 12-53 U/L Urine Color Light-yellow Yellow Urine Clarity Clear Clear Urine pH 5.5 5.0-9.0 Urine Specific [place] 1.016 1.001-1.035 Urine Protein 2+ H Negative Urine Ketones Negative Negative Urine Blood 3+ H Negative /uL Urine Nitrite Negative Negative Urine Bilirubin Negative Negative Urine Urobilinogen Normal Negative mg/dL Urine Leukocyte Esterase Negative Negative /uL Urine RBC 5 0 - 3 /hpf Urine WBC 3 0 - 3 /hpf Urine Squamous Epithelial Cells None seen <5 /hpf Urine Bacteria None seen None Seen /hpf Urine Hyaline Casts Few 0 - 2 /lpf Urine Mucus Few None Seen Urine Glucose Normal Normal mg/dL Problems(with codes): (1) Microscopic polyangiitis (2) Rheumatoid arthritis Plan/Recommendation solumedrol 1g daily x 3 days, transition to prednisone 60mg daily on discharge rituximab 1g IV x 2 doses 2 weeks apart recommend daily PPI Consider PJP ppx on discharge with bactrim DS 1 tab MWF will arrange second dose of rituximab once he returns from [place] in the outpatient setting pulmonary infiltrates are suspected to be part of his MPA at this stage No clear indication for PLEX or IVIG at this point, monitor for rapid deterioration - worsening renal disease or diffuse alveolar hemorrhage would change this recommendation. Plan discussed with: Patient FCO SARMIENTO MD Mar 08, 2024 22:55
[2024-03-09 01:00] VITALS: BP 105/64; PULSE 72; RESP 18; TEMP 98; O2SAT 95
--- NOTE | 2024-03-09 04:55 | DVHPN2 ---
Subjective Feeling better this morning with no complaints Reviewed: Care Plan, H&P, Labs, Medications, Previous Orders, Radiology, Other (Consultations) Changes from previous H/P or p: Changes Objective Vitals Vital Signs Date Time Temp Pulse Resp B/P (MAP) Pulse Ox O2 Delivery O2 Flow Rate FiO2 03/09/24 01:00 98.0 72 18 105/64 (78) 95 98.0 03/08/24 20:00 Room Air* 0 21 Intake/Output Intake and Output 03/09/24 07:00 Intake Total 1148 ml Balance 1148 ml Intake Oral 540 ml IV Total 608 ml # Voids 2 General Appearance: Alert, Oriented X3, Cooperative, No acute distress HEENT: Atraumatic Lungs: Clear to auscultation, Normal air movement Cardiovascular: Regular rate, Normal S1, Normal S2 Abdomen: Normal bowel sounds, Soft, No tenderness Extremities: Other (Decreasing hands swelling and tenderness) Neuro: Normal gait, Normal speech, Strength at 5/5 X4 ext, Normal tone, S ensation intact, Cranial nerves 3-12 NL Psych/Mental Status: Mental status NL, Mood NL Medications Current Medications Medications Dose Ordered Sig/[place] Route Start Time Stop Time Status Last Admin Dose Admin Ceftriaxone Sodium 50 ml @ 100 mls/hr DAILY@09 IV 03/08/24 09:00 03/08/24 09:48 100 MLS/HR Ondansetron HCl 4 mg Q6HPRN PRN IV 03/07/24 13:30 Acetaminophen 650 mg Q4HP PRN PO 03/07/24 13:30 Tramadol HCl 50 mg Q8HPRN PRN PO 03/08/24 01:00 03/08/24 11:05 50 MG Pantoprazole Sodium 40 mg DAILY@0600 PO 03/09/24 06:00 Methylprednisolone Sodium Succinate 1000 mg/Dextrose 258 ml @ 258 mls/hr DAILY IV 03/08/24 10:00 03/09/24 10:01 03/08/24 12:14 258 MLS/HR Laboratory Results Laboratory Tests 03/08/24 06:25 Chemistry Test 03/08/24 06:25 Albumin 4.0 g/dL (3.2-4.8) Calcium Level 9.8 mg/dL (8.7-10.4) Total Protein 6.6 g/dL (5.7-8.2) LFT Test 03/08/24 06:25 Alanine Aminotransferase (ALT) 26 U/L (7-40) Alkaline Phosphatase 57 U/L (46-116) Aspartate Amino Transferase (AST) 18 U/L (13-40) Total Bilirubin 0.6 mg/dL (0.2-1.0) Urinalysis Test 03/07/24 11:20 Urine Color Light-yellow (Yellow) Urine Clarity Clear (Clear) Urine pH 5.5 (5.0-9.0) Urine Specific [place] 1.016 (1.001-1.035) Urine Protein 2+ (Negative) H Urine Ketones Negative (Negative) Urine Blood 3+ /uL (Negative) H Urine Nitrite Negative (Negative) Urine Bilirubin Negative (Negative) Urine Urobilinogen Normal mg/dL (Negative) Urine Leukocyte Esterase Negative /uL (Negative) Urine RBC 5 /hpf (0 - 3) Urine WBC 3 /hpf (0 - 3) Urine Squamous Epithelial Cells None seen /hpf (<5) Urine Bacteria None seen /hpf (None Seen) Urine Hyaline Casts Few /lpf (0 - 2) Urine Mucus Few (None Seen) Urine Glucose Normal mg/dL (Normal) Labs and/or images reviewed: Labs reviewed by me, Image(s) reviewed by me Assessment/Plan Assessment/Plan A 38-year-old morbidly obese male patient; who is known to have rheumatoid arthritis; who recently had renal biopsy for microscopic hematuria; the patient was called by his apple packing header to go to the emergency department for worsening kidney function. #Microscopic polyangiitis with suspected pulmonary infiltrates; received one dose of IV rituximab; finish three days of IV methylprednisolone 1 g daily; discharged home on prednisone 80 mg daily; also was discharged on prophylactic Bactrim DS; rheumatology and Nephrology are following both inpatient and outpatient; will be seen tomorrow at 11:[address] 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; nephrology is following; avoid nephrotoxic agents; improving renal function with a resolving IOANA; management and details as above; will follow up with Nephrology as outpatient #IOANA; can not rule out vasomotor nephropathy; in the setting of pauci immune glomerulonephritis; details and management as above; will follow up with Nephrology as outpatient #Proteinuria due to pauci immune glomerulonephritis; details and management as above; will follow up with Nephrology as outpatient #Hematuria due to pauci immune glomerulonephritis; details and management as above; we will follow up with Nephrology as outpatient #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; details and management as above; will follow up with Nephrology as outpatient #Rheumatoid arthritis; management as above with IV steroids and IV rituximab; rheumatology is following; will follow up with Nephrology as outpatient #Joints pain/swelling due to rheumatoid arthritis; prescribed [place] 5/325 mg after reviewing CURES #History of familial Mediterranean fever; will follow rheumatology as outpatient #Morbid obesity; counseled the patient on the importance of adopting healthy lifestyle with diet and exercise in order to lose weight; to follow up as outpatient #Normocytic anemia; most likely inflammatory; no signs/symptoms of bleeding; to follow up CBC as outpatient #Discharged on pantoprazole 40 mg daily as the patient will be on prednisone 80 mg daily; to follow up with the primary care provider as outpatient Will be discharged after finishing the 3rd dose of IV methylprednisolone 1 g. Late Entry. This medical document was created using an electronic medical record system with computerized dictation system. Although this document has been carefully reviewed, there might still be some phonetic and typographical errors. These areas are purely typographical due to imperfections of the software programs, and do not reflect any compromise in the patient's medical care. Plan discussed with: Patient, Other (Nurse) My Orders Orders - BARRY SAMANO MD Procedure Category Date Status Time Basic Metabolic Panel LAB 03/09/24 Logged 04:00 Complete Blood Count LAB 03/09/24 Logged 04:00 Date of Service: Mar 09, 2024 Billing Provider: BARRY SAMANO MD Common Visit Codes: [id number] INP/OBS CARE(HIGH) BARRY SAMANO MD Mar 09, 2024 04:55
[2024-03-09 05:00] VITALS: BP 118/62; PULSE 79; RESP 18; TEMP 97.7; O2SAT 98
[2024-03-09] MEDS: PANTOPRAZOLE 40 MG TAB PO SCH (06:30)
[2024-03-09 06:44] LABS: Basophils # (auto) 0 10 ^3/uL (0-0.2); Basophils % (auto) 0.3 % (0.0-2.0); Eosinophils # (auto) 0 10 ^3/uL (0-0.8); Hematocrit 35.6 % (41.0-53.0); Hemoglobin 11.9 g/dL (13.5-17.5); Lymphocytes # (auto) 0.7 10 ^3/uL (0.4-5.4); Lymphocytes % (auto) 4.1 % (10.0-50.0); Mean Corpuscular Hemoglobin 28.4 pg (28.0-32.0); Mean Corpuscular Hgb Conc. 33.5 g/dL (32.0-36.0); Monocytes # (auto) 0.5 10 ^3/uL (0-1.3); Neutrophils # (auto) 15.1 10 ^3/uL (1.6-8.6); Neutrophils % (auto) 92.6 % (37.0-80.0); Platelet Count (auto) 217 10^3/uL (140-450); Red Blood Cells 4.19 10^6/uL (4.5-5.90); Red Cell Distribution Width 17.3 % (11.8-14.3); White Blood Cell 16.3 10^3/uL (4.4-10.8)
[2024-03-09 06:50] LABS: Potassium 4.2 mmol/L (3.5-5.1); Sodium 139 mmol/L (136-145)
[2024-03-09 06:51] LABS: Anion Gap 6 (5-15); Calcium 9.4 mg/dL (8.7-10.4); Carbon Dioxide 25 mmol/L (20-31)
[2024-03-09 06:56] LABS: BUN/Creatinine Ratio 20.5 (10.0-20.0)
[2024-03-09 06:58] LABS: Blood Urea Nitrogen 24 mg/dL (9-23); Chloride 108 mmol/L (98-107); Glucose 145 mg/dL (74-106)
[2024-03-09 07:58] LABS: Bilirubin, Direct 0.1 mg/dL (<0.3); Bilirubin, Total 0.3 mg/dL (0.2-1.0); Total Protein 6.2 g/dL (5.7-8.2)
[2024-03-09 08:11] LABS: Albumin 3.8 g/dL (3.2-4.8)
[2024-03-09] MEDS ORDERED: PANT40T PO (08:36)
[2024-03-09] MEDS ORDERED: PRED20TA2 PO (08:36)
[2024-03-09] MEDS ORDERED: BACDST PO (08:37)
--- NOTE | 2024-03-09 08:39 | DVHDS2 ---
Discharge Summary Date of Admission Mar 07, 2024 at 12:49 Date of Discharge: Mar 09, 2024 Admitting Diagnosis Worsening kidney function Labs/Diagnostic Data: Laboratory Results Test 03/09/24 06:15 03/07/24 11:30 03/07/24 11:20 White Blood Count 16.3 10^3/uL (4.4-10.8) Red Blood Count 4.19 10^6/uL (4.5-5.90) Hemoglobin 11.9 g/dL (13.5-17.5) Hematocrit 35.6 % (41.0-53.0) Mean Corpuscular Volume 85.0 fL (80.0-100.0) Mean Corpuscular Hemoglobin 28.4 pg (28.0-32.0) Mean Corpuscular Hemoglobin Concent 33.5 g/dL (32.0-36.0) Red Cell Distribution Width 17.3 % (11.8-14.3) Platelet Count 217 10^3/uL (140-450) Mean Platelet Volume 9.4 fL (6.9-10.8) Neutrophils (%) (Auto) 92.6 % (37.0-80.0) Lymphocytes (%) (Auto) 4.1 % (10.0-50.0) Monocytes (%) (Auto) 3.0 % (0.0-12.0) Eosinophils (%) (Auto) 0.0 % (0.0-7.0) Basophils (%) (Auto) 0.3 % (0.0-2.0) Neutrophils # (Auto) 15.1 10 ^3/uL (1.6-8.6) Lymphocytes # (Auto) 0.7 10 ^3/uL (0.4-5.4) Monocytes # (Auto) 0.5 10 ^3/uL (0-1.3) Eosinophils # (Auto) 0 10 ^3/uL (0-0.8) Basophils # (Auto) 0 10 ^3/uL (0-0.2) Nucleated Red Blood Cells 0.0 % Sodium Level 139 mmol/L (136-145) Potassium Level 4.2 mmol/L (3.5-5.1) Chloride Level 108 mmol/L (98-107) Carbon Dioxide Level 25 mmol/L (20-31) Anion Gap 6 (5-15) Blood Urea Nitrogen 24 mg/dL (9-23) Creatinine 1.17 mg/dL (0.700-1.30) Glomerular Filtration Rate Calc 82 mL/min (>90) BUN/Creatinine Ratio 20.5 (10.0-20.0) Serum Glucose 145 mg/dL (74-106) Calcium Level 9.4 mg/dL (8.7-10.4) Total Bilirubin 0.3 mg/dL (0.2-1.0) Direct Bilirubin 0.1 mg/dL (<0.3) Aspartate Amino Transferase (AST) 16 U/L (13-40) Alanine Aminotransferase (ALT) 27 U/L (7-40) Alkaline Phosphatase 55 U/L (46-116) Total Protein 6.2 g/dL (5.7-8.2) Albumin 3.8 g/dL (3.2-4.8) Magnesium Level 1.8 mg/dL (1.6-2.6) Lipase 36 U/L (12-53) Urine Color Light-yellow (Yellow) Urine Clarity Clear (Clear) Urine pH 5.5 (5.0-9.0) Urine Specific [place] 1.016 (1.001-1.035) Urine Protein 2+ (Negative) Urine Ketones Negative (Negative) Urine Blood 3+ /uL (Negative) Urine Nitrite Negative (Negative) Urine Bilirubin Negative (Negative) Urine Urobilinogen Normal mg/dL (Negative) Urine Leukocyte Esterase Negative /uL (Negative) Urine RBC 5 /hpf (0 - 3) Urine WBC 3 /hpf (0 - 3) Urine Squamous Epithelial Cells None seen /hpf (<5) Urine Bacteria None seen /hpf (None Seen) Urine Hyaline Casts Few /lpf (0 - 2) Urine Mucus Few (None Seen) Urine Glucose Normal mg/dL (Normal) Other Laboratory Tests 03/09/24 06:15 Brief Hx & Hospital Course: A 38-year-old morbidly obese male patient; who is known to have rheumatoid arthritis; who recently had renal biopsy for microscopic hematuria; the patient was called by his brigadier to go to the emergency department for worsening kidney function. #Microscopic polyangiitis with suspected pulmonary infiltrates; received one dose of IV rituximab; finish three days of IV methylprednisolone 1 g daily; discharged home on prednisone 80 mg daily; also was discharged on prophylactic Bactrim DS; rheumatology and Nephrology are following both inpatient and outpatient; will be seen tomorrow at 11:[address] 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; nephrology is following; avoid nephrotoxic agents; improving renal function with a resolving IOANA; management and details as above; will follow up with Nephrology as outpatient #IOANA; can not rule out vasomotor nephropathy; in the setting of pauci immune glomerulonephritis; details and management as above; will follow up with Nephrology as outpatient #Proteinuria due to pauci immune glomerulonephritis; details and management as above; will follow up with Nephrology as outpatient #Hematuria due to pauci immune glomerulonephritis; details and management as above; we will follow up with Nephrology as outpatient #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; details and management as above; will follow up with Nephrology as outpatient #Rheumatoid arthritis; management as above with IV steroids and IV rituximab; rheumatology is following; will follow up with Nephrology as outpatient #Joints pain/swelling due to rheumatoid arthritis; prescribed [place] 5/325 mg after reviewing CURES #History of familial Mediterranean fever; will follow rheumatology as outpatient #Morbid obesity; counseled the patient on the importance of adopting healthy lifestyle with diet and exercise in order to lose weight; to follow up as outpatient #Normocytic anemia; most likely inflammatory; no signs/symptoms of bleeding; to follow up CBC as outpatient #Discharged on pantoprazole 40 mg daily as the patient will be on prednisone 80 mg daily; to follow up with the primary care provider as outpatient Physical examination as documented on the progress note of the day of discharge. Late Entry. This medical document was created using an electronic medical record system with computerized dictation system. Although this document has been carefully reviewed, there might still be some phonetic and typographical errors. These areas are purely typographical due to imperfections of the software programs, and do not reflect any compromise in the patient's medical care. 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 #IOANA; can not rule out vasomotor nephropathy; in the setting of pauci immune glomerulonephritis #Proteinuria due to pauci immune glomerulonephritis #Hematuria due to pauci immune glomerulonephritis #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 Samano at 11:00 a.m. tomorrow morning Sunday March 10, 2024 after doing CBC, CMP, and urinalysis; the patient was provided with order form filled out signed by Dr. Samano; to be done at 7 to 8 a.m. tomorrow morning. To follow up with Nephrology and Rheumatology after returning from [place]; will return on March 25, 2024 Medications: The patient was prescribed daily prednisone 80 mg with daily pantoprazole 40 mg; sent 28 tablets of [place] 5/325 mg after reviewing CURES; also will be on prophylactic Bactrim DS on Mondays/Wednesdays/Fridays. Discharge Statement: "Patient was advised to return to the ER or call 911 if any headaches, dizziness, shortness of breath, chest pain, abdominal pain, bleeding, fevers, or worsening of medical condition. Patient was counseled about treatment plan, medications, possible side effects, patientverbalized understanding. All questions were answered to the best of my ability. This discharge took greater then 30 minutes in planning, reviewing documentation, counseling the patient, and discussing with other team members." ASSESSMENT ASSESSMENT Assessment Date of Service: Mar 09, 2024 Billing Provider: BARRY SAMANO MD Common Visit Codes: 30104-FXG/OBS DISCH DAY >30min BARRY SAMANO MD Mar 09, 2024 08:39
[2024-03-09 09:10] VITALS: BP 118/68; PULSE 77; RESP 17; TEMP 97.6; O2SAT 98
[2024-03-09 09:30] VITALS: BP 118/68; PULSE 77; RESP 17; TEMP 97.6; O2SAT 98
--- NOTE | 2024-03-09 13:21 | DVHPN2 ---
Progress Note Date Seen: Mar 09, 2024 Medical Necessity Reason Pt with a Central, PICC or Fol: No Subjective Patient reports: No new complaints, Feels better Review of Systems: HEENT:Normal, CVS:Normal, RESPIRATORY:Normal, GI:Normal, :Normal, MSK:Normal, NEURO:Normal Objective vital signs Vital Sign Date Time Temp Pulse Resp B/P (MAP) Pulse Ox O2 Delivery O2 Flow Rate FiO2 03/09/24 09:30 97.6 77 17 118/68 (85) 98 97.6 03/08/24 20:00 Room Air* 0 21 Total Intake and Output 03/08/24 03/08/24 03/09/24 15:00 23:00 07:00 Intake Total 1148 ml 700 ml Balance 1148 ml 700 ml medications Current Medications Medications Dose Ordered Sig/[place] Route Start Time Stop Time Status Last Admin Dose Admin Ceftriaxone Sodium 50 ml @ 100 mls/hr DAILY@09 IV 03/08/24 09:00 03/09/24 10:57 100 MLS/HR Ondansetron HCl 4 mg Q6HPRN PRN IV 03/07/24 13:30 Acetaminophen 650 mg Q4HP PRN PO 03/07/24 13:30 Tramadol HCl 50 mg Q8HPRN PRN PO 03/08/24 01:00 03/09/24 12:15 50 MG Pantoprazole Sodium 40 mg DAILY@0600 PO 03/09/24 06:00 03/09/24 06:30 40 MG Examination: GENERAL:Normal, HEENT:Normal, NECK:Normal, LUNGS:Normal, CVS:Normal, ABDOMEN:Normal, MSK:Normal, SKIN:Normal, NEURO:Normal, :Normal laboratory and microbiology Laboratory Tests 03/09/24 06:15 Test 03/09/24 06:15 Range/Units Serum Glucose 145 H 74-106 mg/dL Problem List/Assessment/Plan Problem List/Assessment/Plan Microscopic polyangiitis 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
--- NOTE | 2024-03-10 07:26 | ECG ---
[facility] Test Date: 2024-03-07 Test Time: 13:07:15 Pat Name: ISSA ANDERSON Department: er Room: 0295 Gender: M Adjunct Psychology Faculty Member: kathy : 1985 Requested By: SUSANA BEKC Order Number: [id number] Reading MD: Measurements Intervals [place] Rate: 72 P: 30 UT: 155 QRS: 16 QRSD: 115 T: 37 QT: 376 QTc: 412 Interpretive Statements Sinus rhythm Incomplete right bundle branch block ST elev, probable normal early repol pattern Please click the below link to view image of tracing.
[2024-03-10 09:31] LABS: Hepatitis B Surface Antigen Negative (Negative)
[2024-03-10 10:08] LABS: Hepatitis A Ab IgM Negative; Hepatitis B Core IgM Negative (Negative); Hepatitis C Antibody Negative (Negative)
== END 2024-03-09 14:20 | disposition home or self-care (01) | DRG 871 ==
LOC: ER 09:32 → OVERFLOW 12:49 → EEVIPCON 12:49 → WEST WING 16:32
PROVIDERS: ADMIT Internal Medicine; ATTEND Internal Medicine
DX: A41.9 Sepsis, unspecified organism (principal); N17.0 Acute kidney failure with tubular necrosis; M31.7 Microscopic polyangiitis; Z68.45 Body mass index [BMI] 70 or greater, adult; N05.7 Unspecified nephritic syndrome with diffuse crescentic glomerulonephritis; M05.761 Rheumatoid arthritis with rheumatoid factor of right knee without organ or systems involvement; E66.01 Morbid (severe) obesity due to excess calories; R31.29 Other microscopic hematuria; D63.8 Anemia in other chronic diseases classified elsewhere; Z79.899 Other long term (current) drug therapy
CPT/HCPCS: 36415; 71046; 80048; 80053; 80074; 80076; 81001; 83690; 83735; 85025; 93005; G0378; J7060

== ENCOUNTER 2024-03-10 11:03 | Emergency (ER) | payer BC ==
[~2024-03-10] VITALS: Ht 165.1 cm; Wt 109.4 kg
--- NOTE | 2024-03-10 11:19 | ECG ---
[facility] Test Date: 2024-03-10 Test Time: 11:03:38 Pat Name: ISSA ANDERSON Department: ED Room: Gender: M Grants Specialist: TAYNA : 1985 Requested By: DEBBIE JIMENEZ Order Number: [id number] Reading MD: Wilian Maldonado Measurements Intervals [place] Rate: 42 P: 34 IA: 154 QRS: 15 QRSD: 127 T: 30 QT: 499 QTc: 417 Interpretive Statements Sinus bradycardia IVCD, consider atypical RBBB ST elev, probable normal early repol pattern Baseline wander in lead(s) V1 Electronically Signed On 03-13-2024 16:31:35 PST by Wilian Maldonado Please click the below link to view image of tracing.
--- NOTE | 2024-03-10 11:32 | ED.PDOC ---
HPI Comments 38 y.o male with PMHX of rheumatoid arthritis and macroscopic meningitis, presents to the ED for an evaluation of bradycardia. Patient reports having a follow up appointment with PCP today s/p recent hospital admission to this hospital for [facility], states his heart rate is reading in the 40's when usually is around in the 90's. Patient at this time is asymptomatic and denies any pain. Patient was admitted here for about 3 days s/p kidney biopsy report reading abnormal, was given medications and antibiotics and discharged home yesterday. Patient denies any substance, alcohol or tobacco use. Chief Complaint: General Weakness Time Seen by MD: 11:10 Primary Care Provider: JAZMYNE Reviewed Notes: Nurses Notes, Medications, Allergies Allergies: Coded Allergies: NO KNOWN ALLERGIES (Unverified , 01/03/21) Home Meds Active Scripts Sulfamethoxazole W/Trimethopri (Bactrim Ds Tablet) 1 Tab Tb, 1 TAB PO BID for 60 Days, #60 TAB To take 3 times a week; on Mondays, Wednesdays, and Fridays. Thank You! Prov:BARRY SAMANO MD 03/09/24 Prednisone (Prednisone) 20 Mg Tab, 80 MG PO DAILY@BREAKFAST for 30 Days, #120 MG Prov:BARRY SAMANO MD 03/09/24 Pantoprazole Sodium Sesquihydr (Pantoprazole Sodium) 40 Mg Tab, 40 MG PO DAILY@0600 for 90 Days, #90 TAB Prov:BARRY SAMANO MD 03/09/24 Discontinued Reported Medications Tramadol Hcl (Tramadol Hcl) 50 Mg Tab, 50 MG PO Q6HP for pain, MG 03/07/24 Discontinued Scripts Hydrocodone-Acetaminophen (Hydrocodone/Acetaminophen 5-325 mg) 1 Tab Tab, 1 TAB PO Q6HPRN PRN, #12 TAB 0 Refills Prov:DHARMESH IGLESIASP 03/31/23 Cyclobenzaprine Hcl (Cyclobenzaprine Hcl) 10 Mg Tab, 10 MG PO TID, #12 TAB 0 Refills Prov:DHARMESH IGLESIASP 03/31/23 Information Source: Patient Mode of Arrival: Ambulatory Severity: Mild Timing: Hours Duration: Since onset Onset: At Rest Cardiac Risk Factors: None PE Risk Factors: Other History of: None Associated Signs and Symptoms: None Past Medical History PAST MEDICAL HISTORY: Arthritis Past Medical History (Other): macroscopic mengitis Surgical History: Denies all surgeries Family History Family History: Unknown Social History Smoker: Non-Smoker Alcohol: Denies ETOH Use Drugs: Denies Drug Use Lives In: Home Constitutional: denies: chills, diaphoresis, fatigue, fever, malaise, sweats, weakness, others EENTM: denies: blurred vision, double vision, ear bleeding, ear discharge, ear drainage, ear pain, ear ringing, eye pain, eye redness, hearing loss, mouth pain, mouth swelling, nasal discharge, nose bleeding, nose congestion, nose pain, photophobia, tearing, throat pain, throat swelling, voice changes, others Respiratory: denies: cough, hemoptysis, orthopnea, SOB at rest, shortness of breath, SOB with excertion, stridor, wheezing, others Cardiovascular: denies: chest pain, dizzy spells, diaphoresis, Dyspnea on exertion, edema, irregular heart beat, left arm pain, lightheadedness, palpitations, PND, syncope, others Gastrointestinal: denies: abdomen distended, abdominal pain, blood streaked bowels, constipated, diarrhea, dysphagia, difficulty swallowing, hematemesis, melena, nausea, poor appetite, poor fluid intake, rectal bleeding, rectal pain, vomiting, others Genitourinary: denies: burning, dysuria, flank pain, frequency, hematuria, incontinence, penile discharge, penile sore, pain, testicle pain, testicle swelling, urgency, others Neurological: denies: dizziness, fainting, headache, left sided numbness, left sided weakness, numbness, paresthesia, pre-existing deficit, right sided numbness, right sided weakness, seizure, speech problems, tingling, tremors, weakness, others Musculoskeletal: denies: back pain, gout, joint pain, joint swelling, muscle pain, muscle stiffness, neck pain, others Integumetry: denies: bruises, change in color, change in hair/nails, dryness, laceration, lesions, lumps, rash, wounds, others Allergic/Immunocompromised: denies: Difficulty Healing, Frequent Infections, Hives, Itching, others Hematologic/Lymphatic: denies: anemia, blood clots, easy bleeding, easy bruising, swollen glands, others Endocrine: denies: excessive hunger, excessive sweating, excessive thirst, excessive urination, flushing, intolerance to cold, intolerance to heat, unexplained weight gain, unexplained weight loss, others Psychiatric: denies: anxiety, bipolar disorder, depression, hopeless, panic disorder, schizophrenia, sleepless, suicidal, others All Other Systems: Reviewed and Negative Physical Exam General Appearance: No Apparent Distress HEENT: Normal ENT Inspection, Pharynx Normal, TMs Normal Neck: Full Range of Motion, Non-Tender, Normal, Normal Inspection Respiratory: Chest Non-Tender, Lungs Clear, No Accessory Muscle Use, No Respiratory Distress, Normal Breath Sounds Cardiovascular: Bradycardia, No Edema, No JVD, No Murmur, No Gallop Breast Exam: Deferred Gastrointestinal: No Organomegaly, Non Tender, No Pulsatile Mass, Normal Bowel Sounds, Soft Genitalia: Deferred Pelvic: Deferred Rectal: Deferred Extremities: No calf tenderness, Normal capillary refill, Normal inspection, Normal range of motion, Non-tender, No pedal edema Musculoskeletal : Apperance: Normal Neurologic: Alert, paper carrier II-XII nml as Tested, No Motor Deficits, Normal Affect, Normal Mood, No Sensory Deficits Cerebellar Function: Normal Reflexes: Normal Skin: Dry, Normal Color, Warm Lymphatic: No Adenopathy Was a procedure done? Was a procedure done?: No CP Differential Dx Differential Diagnosis: Atrial Dysrhythmia, Electrolyte Disorder, Heart Failure X-Ray, Labs, Meds, VS Vital Signs Date Time Temp Pulse Resp B/P (MAP) Pulse Ox O2 Delivery O2 Flow Rate FiO2 03/10/24 11:03 42 03/10/24 11:03 97.5 46 18 108/66 (80) 98 Lab Test 03/10/24 12:50 03/10/24 11:25 Range/Units Troponin I High Sensitivity 23 25 </=54 ng/L Erythrocyte Sedimentation Rate 18 0-20 mm/hr Magnesium Level 2.4 1.6-2.6 mg/dL At this time, we feel comfortable discharging the patient. The patient was completely asymptomatic. The patient's troponin level is within normal limits The ESR is negative The magnesium level is within normal limits The patient will follow up with the primary care doctor The patient will return to the emergency department's condition worsens. Time of 1ST Reevaluation: 11:32 Reevaluation 1ST: Unchanged Patient Education/Counseling: Diagnosis, Treatment, Prognosis, Need For Follow Up Family Education/Counseling: No Family Present Departure 1 Departure Time of Disposition: 14:08 Impression: Primary Impression: Rheumatoid arthritis Qualified Codes: M06.9 - Rheumatoid arthritis, unspecified Additional Impression: Bradycardia by electrocardiogram Disposition: HOME / SELF CARE / HOMELESS Condition: Fair Discharged With: Self Critical Care Note Critical Care Time?: No Stability Stability form required: No Heart Score Heart Score: Heart Score Response (Comments) Value History Slightly Suspicious 0 EKG Normal 0 Age <45 0 Risk Factors No known risk factors 0 Troponin Normal limit 0 Total 0 I personally scribed for DEBBIE JIMENEZ MD ([email or web address]) on 03/10/24 at 11:32. Electronically submitted by Christina Redd ([facility]). DEBBIE JIMENEZ MD Mar 10, 2024 11:32
[2024-03-10 12:58] LABS: Erythrocyte Sedimentation Rate 18 mm/hr (0-20)
[2024-03-10 15:02] VITALS: BP 108/66; PULSE 46; RESP 18; TEMP 97.5; O2SAT 98
== END 2024-03-10 15:03 | disposition home or self-care (01) ==
LOC: ER 11:03
DX: M06.9 Rheumatoid arthritis, unspecified (principal); R00.1 Bradycardia, unspecified; Z79.899 Other long term (current) drug therapy
CPT/HCPCS: 36415; 83735; 84484; 85652; 93005

== ENCOUNTER → 2024-03-10 | Outpatient (CLI) | payer BC ==
[~2024-03-10] MED LIST changes: +BACDST PO; -CYCL-839 PO; -HYDR1TAB97 PO; +PANT40T PO; +PRED20TA2 PO
[2024-03-10 09:21] LABS: Urine Bacteria None Seen /hpf (None Seen)
[2024-03-10 09:41] LABS: Basophils # (auto) 0 10 ^3/uL (0-0.2); Eosinophils # (auto) 0 10 ^3/uL (0-0.8); Hematocrit 37.9 % (41.0-53.0); Hemoglobin 12.3 g/dL (13.5-17.5); Lymphocytes # (auto) 0.7 10 ^3/uL (0.4-5.4); Lymphocytes % (auto) 4.8 % (10.0-50.0); Mean Corpuscular Hemoglobin 28.2 pg (28.0-32.0); Mean Corpuscular Hgb Conc. 32.5 g/dL (32.0-36.0); Mean Corpuscular Volume 86.7 fL (80.0-100.0); Monocytes # (auto) 0.5 10 ^3/uL (0-1.3); Monocytes % (auto) 3.5 % (0.0-12.0); Neutrophils # (auto) 12.7 10 ^3/uL (1.6-8.6); Neutrophils % (auto) 91.7 % (37.0-80.0); Platelet Count (auto) 228 10^3/uL (140-450); Red Blood Cells 4.37 10^6/uL (4.5-5.90); Red Cell Distribution Width 17.6 % (11.8-14.3); White Blood Cell 13.9 10^3/uL (4.4-10.8)
[2024-03-10 09:58] LABS: Urine Blood 3+ /uL (Negative); Urine Clarity Clear (Clear); Urine Color Light-Yellow (Yellow); Urine Hyaline Cast FEW /lpf (0 - 2); Urine Mucus FEW (None Seen); Urine Protein, UAD 2+ (Negative); Urine Specific Gravity 1.028 (1.001-1.035); Urine Squamous Epithelial Cell FEW /hpf (<5); Urine Urobilinogen Normal (Negative); Urine WBC 10 /hpf (0 - 3)
[2024-03-10 10:15] LABS: Alkaline Phosphatase 58 U/L (46-116); Anion Gap 8 (5-15); BUN/Creatinine Ratio 19.8 (10.0-20.0); Calcium 9.2 mg/dL (8.7-10.4); Carbon Dioxide 25 mmol/L (20-31); Potassium 3.8 mmol/L (3.5-5.1); Sodium 140 mmol/L (136-145)
[2024-03-10 10:17] LABS: Albumin 3.8 g/dL (3.2-4.8); Aspartate Aminotransferase 26 U/L (13-40); Bilirubin, Total 0.4 mg/dL (0.2-1.0); Total Protein 6.2 g/dL (5.7-8.2)
[2024-03-10 10:18] LABS: Alanine Aminotransferase 43 U/L (7-40); Blood Urea Nitrogen 25 mg/dL (9-23); Chloride 107 mmol/L (98-107); Glucose 144 mg/dL (74-106)
== END | disposition home or self-care (01) ==
LOC: LAB 08:14
PROVIDERS: ATTEND Internal Medicine
DX: D72.829 Elevated white blood cell count, unspecified (principal); N17.0 Acute kidney failure with tubular necrosis; M05.761 Rheumatoid arthritis with rheumatoid factor of right knee without organ or systems involvement; M31.7 Microscopic polyangiitis
CPT/HCPCS: 36415; 80053; 81001; 85025

== ENCOUNTER → 2024-03-27 | Outpatient (CLI) | payer BC ==
[2024-03-27 16:24] LABS: Basophils # (auto) 0 10 ^3/uL (0-0.2); Basophils % (auto) 0.2 % (0.0-2.0); Eosinophils # (auto) 0 10 ^3/uL (0-0.8); Hematocrit 42.3 % (41.0-53.0); Lymphocytes # (auto) 0.3 10 ^3/uL (0.4-5.4); Lymphocytes % (auto) 2.2 % (10.0-50.0); Mean Corpuscular Hgb Conc. 33.1 g/dL (32.0-36.0); Mean Corpuscular Volume 87.5 fL (80.0-100.0); Monocytes # (auto) 0.3 10 ^3/uL (0-1.3); Monocytes % (auto) 2.5 % (0.0-12.0); Neutrophils # (auto) 12.3 10 ^3/uL (1.6-8.6); Neutrophils % (auto) 95.1 % (37.0-80.0); Platelet Count (auto) 175 10^3/uL (140-450); Red Blood Cells 4.84 10^6/uL (4.5-5.90); Red Cell Distribution Width 17.4 % (11.8-14.3)
[2024-03-27 16:57] LABS: Alkaline Phosphatase 65 U/L (46-116); Calcium 9.5 mg/dL (8.7-10.4); Carbon Dioxide 23 mmol/L (20-31); Chloride 107 mmol/L (98-107); Erythrocyte Sedimentation Rate 8 mm/hr (0-20)
[2024-03-27 16:58] LABS: Albumin 4.3 g/dL (3.2-4.8); Anion Gap 10 (5-15); BUN/Creatinine Ratio 18.2 (10.0-20.0); Bilirubin, Total 1.2 mg/dL (0.2-1.0); Potassium 4.2 mmol/L (3.5-5.1); Sodium 140 mmol/L (136-145); Total Protein 6.5 g/dL (5.7-8.2)
[2024-03-27 17:09] LABS: Alanine Aminotransferase 85 U/L (7-40); Aspartate Aminotransferase 42 U/L (13-40); Blood Urea Nitrogen 26 mg/dL (9-23); CRP High Sensitivity 1.78 mg/dL (<1.0); Glucose 120 mg/dL (74-106)
== END | disposition home or self-care (01) ==
LOC: LAB 15:58
PROVIDERS: ATTEND Internal Medicine
DX: M05.79 Rheumatoid arthritis with rheumatoid factor of multiple sites without organ or systems involvement (principal); N17.9 Acute kidney failure, unspecified; M31.7 Microscopic polyangiitis; N05.8 Unspecified nephritic syndrome with other morphologic changes; R31.29 Other microscopic hematuria; K80.80 Other cholelithiasis without obstruction
CPT/HCPCS: 36415; 80053; 85025; 85652; 86141

== ENCOUNTER → 2024-04-15 | Outpatient (CLI) | payer BC ==
[2024-04-15 09:30] LABS: Urine Bacteria None Seen /hpf (None Seen)
[2024-04-15 09:48] LABS: Hematocrit 41.5 % (41.0-53.0); Hemoglobin 13.7 g/dL (13.5-17.5); Mean Corpuscular Hemoglobin 28.7 pg (28.0-32.0); Mean Corpuscular Volume 87.2 fL (80.0-100.0); Platelet Count (auto) 204 10^3/uL (140-450); Red Blood Cells 4.76 10^6/uL (4.5-5.90); Red Cell Distribution Width 16.8 % (11.8-14.3); White Blood Cell 17.6 10^3/uL (4.4-10.8)
[2024-04-15 09:56] LABS: Urine Blood 1+ /uL (Negative); Urine Clarity Clear (Clear); Urine Color Yellow (Yellow); Urine Mucus FEW (None Seen); Urine Protein, UAD 3+ (Negative); Urine Squamous Epithelial Cell None Seen /hpf (<5); Urine Urobilinogen Normal (Negative); Urine WBC 1 /HPF (0-3)
[2024-04-15 10:04] LABS: Alkaline Phosphatase 59 U/L (46-116); Anion Gap 9 (5-15); Aspartate Aminotransferase 21 U/L (13-40); BUN/Creatinine Ratio 22.7 (10.0-20.0); Bilirubin, Total 0.4 mg/dL (0.2-1.0); Calcium 9.3 mg/dL (8.7-10.4); Carbon Dioxide 25 mmol/L (20-31); Chloride 106 mmol/L (98-107); Potassium 4.3 mmol/L (3.5-5.1); Sodium 140 mmol/L (136-145); Total Protein 5.9 g/dL (5.7-8.2)
[2024-04-15 10:05] LABS: Alanine Aminotransferase 71 U/L (7-40); Basophils % (manual) 0 (0.0-2.0); Blast Cells 0; Blood Urea Nitrogen 25 mg/dL (9-23); Eosinophils % (manual) 0 (0-7); Glucose 132 mg/dL (74-106); Metamyelocytes % 0; Myelocytes % 0; Promyelocytes % 0; Reactive Lymphocytes 0
[2024-04-15 11:44] LABS: Band Neutrophils % (manual) 5; Lymphocytes % (manual) 3 (10.0-50.0); Monocytes % (manual) 6 (0-12); Platelet Estimate Adequate
== END | disposition home or self-care (01) ==
LOC: LAB 08:45
PROVIDERS: ATTEND Internal Medicine
DX: N17.9 Acute kidney failure, unspecified (principal); D72.829 Elevated white blood cell count, unspecified; R30.0 Dysuria; R79.89 Other specified abnormal findings of blood chemistry
CPT/HCPCS: 36415; 80053; 81001; 85007; 85027; 87086

== ENCOUNTER → 2024-05-21 | Outpatient (CLI) | payer BC ==
[2024-05-21 08:35] LABS: Hematocrit 42.7 % (41.0-53.0); Hemoglobin 14.5 g/dL (13.5-17.5); Mean Corpuscular Hemoglobin 30.7 pg (28.0-32.0); Mean Corpuscular Hgb Conc. 33.9 g/dL (32.0-36.0); Mean Corpuscular Volume 90.7 fL (80.0-100.0); Platelet Count (auto) 161 10^3/uL (140-450); Red Blood Cells 4.71 10^6/uL (4.5-5.90); Red Cell Distribution Width 16.1 % (11.8-14.3); White Blood Cell 12.3 10^3/uL (4.4-10.8)
[2024-05-21 08:40] LABS: Basophils % (manual) 0 (0.0-2.0); Blast Cells 0; Eosinophils % (manual) 0 (0-7); Metamyelocytes % 0; Monocytes % (manual) 0 (0-12); Myelocytes % 0; Promyelocytes % 0; Reactive Lymphocytes 0
[2024-05-21 08:43] LABS: Alkaline Phosphatase 55 U/L (46-116); Anion Gap 9 (5-15); Aspartate Aminotransferase 33 U/L (13-40); BUN/Creatinine Ratio 17.4 (10.0-20.0); Blood Urea Nitrogen 20 mg/dL (9-23); Calcium 9.1 mg/dL (8.7-10.4); Carbon Dioxide 23 mmol/L (20-31); Chloride 104 mmol/L (98-107); Potassium 4.1 mmol/L (3.5-5.1); Sodium 136 mmol/L (136-145)
[2024-05-21 08:45] LABS: Alanine Aminotransferase 60 U/L (7-40); Glucose 134 mg/dL (74-106)
[2024-05-21 08:57] LABS: Erythrocyte Sedimentation Rate 8 mm/hr (0-20)
[2024-05-21 09:01] LABS: CRP High Sensitivity 1.55 mg/dL (<1.0)
[2024-05-21 09:14] LABS: Band Neutrophils % (manual) 13; Lymphocytes % (manual) 10 (10.0-50.0)
[2024-05-21 09:15] LABS: Platelet Estimate Adequate
[2024-05-21 11:32] LABS: Creatinine, Urine 107.95 mg/dL (30.0-125.0)
[2024-05-21 11:33] LABS: Protein, Urine 187.7 mg/dL (1-14); Urine Protein/Creatinine Ratio 1.74
== END | disposition home or self-care (01) ==
LOC: LAB 07:30
PROVIDERS: ATTEND Internal Medicine Rheumatology
DX: M05.79 Rheumatoid arthritis with rheumatoid factor of multiple sites without organ or systems involvement (principal); R53.83 Other fatigue
CPT/HCPCS: 36415; 80053; 82570; 84156; 85007; 85027; 85652; 86141

== ENCOUNTER 2024-05-30 16:33 | Emergency (ER) | payer BC ==
[~2024-05-30] VITALS: Ht 165.1 cm; Wt 105.0 kg
[2024-05-30 16:57] VITALS: BP 121/94; RESP 18; TEMP 97.1; O2SAT 97
[2024-05-30 17:28] LABS: Hematocrit 42.8 % (41.0-53.0); Hemoglobin 14.2 g/dL (13.5-17.5); Mean Corpuscular Hemoglobin 29.8 pg (28.0-32.0); Mean Corpuscular Hgb Conc. 33.1 g/dL (32.0-36.0); Mean Corpuscular Volume 90.1 fL (80.0-100.0); Platelet Count (auto) 217 10^3/uL (140-450); Red Blood Cells 4.75 10^6/uL (4.5-5.90); Red Cell Distribution Width 14.9 % (11.8-14.3)
[2024-05-30 17:30] VITALS: PULSE 107
--- NOTE | 2024-05-30 17:30 | ED.PDOC ---
HPI Comments 38 y/o obese M, with a history of microscopic polyangiitis and rheumatoid arthritis, presents with c/o palpitations and diaphoresis, today. Patient endorses on sudden onset of symptoms after receiving some "bad news," while at work, this afternoon. He reports measuring his heart rate at 125 prior to ED arrival. Patient admits to no further relevant or pertinent information, such as recent sick contact or additional cardiac history. Patient denies any chest pain, shortness of breath, dizziness, vision or speech changes, or other associated symptoms or modifiers at this time. No smoking, alcohol, nor drug use. No significant caffeine intake. No suicidal or homicidal thoughts. No hallucinations. Chief Complaint: Palpitations Time Seen by MD: 04:50 Primary Care Provider: JAZMYNE Reviewed Notes: Nurses Notes, Medications, Allergies Allergies: Coded Allergies: NO KNOWN ALLERGIES (Unverified , 01/03/21) Home Meds Active Scripts Sulfamethoxazole W/Trimethopri (Bactrim Ds Tablet) 1 Tab Tb, 1 TAB PO BID for 60 Days, #60 TAB To take 3 times a week; on Mondays, Wednesdays, and Fridays. Thank You! Prov:BARRY SAMANO MD 03/09/24 Prednisone (Prednisone) 20 Mg Tab, 80 MG PO DAILY@BREAKFAST for 30 Days, #120 MG Prov:BARRY SAMANO MD 03/09/24 Pantoprazole Sodium Sesquihydr (Pantoprazole Sodium) 40 Mg Tab, 40 MG PO DAILY@0600 for 90 Days, #90 TAB Prov:BARRY SAMANO MD 03/09/24 Information Source: Patient Mode of Arrival: Ambulatory Severity: Moderate Timing: Hours Duration: Since onset Prehospital treatment: None Past Medical History PAST MEDICAL HISTORY: Arthritis (rheumatoid arthritis) Past Medical History (Other): microscopic polyangiitis Surgical History: Denies all surgeries Family History Family History: Unknown Social History Smoker: Non-Smoker Alcohol: Denies ETOH Use Drugs: Denies Drug Use Lives In: Home All Other Systems: Reviewed and Negative (Comprehensive systems review obtained and negative except for what is stated in the HPI.) Physical Exam General Appearance: No Apparent Distress, Normal HEENT: Normal ENT Inspection, Pharynx Normal, TMs Normal Neck: Full Range of Motion, Non-Tender, Normal, Normal Inspection Respiratory: Chest Non-Tender, Lungs Clear, No Accessory Muscle Use, No Respiratory Distress, Normal Breath Sounds Cardiovascular: No Edema, No JVD, No Murmur, No Gallop, Normal Peripheral Pulses, Tachycardia Breast Exam: Deferred Gastrointestinal: No Organomegaly, Non Tender, No Pulsatile Mass, Normal Bowel Sounds, Soft Genitalia: Deferred Pelvic: Deferred Rectal: Deferred Extremities: No calf tenderness, Normal capillary refill, Normal inspection, Normal range of motion, Non-tender, No pedal edema Musculoskeletal : Apperance: Normal Neurologic: Alert, crab meat processor II-XII nml as Tested, No Motor Deficits, Normal Affect, Normal Mood, No Sensory Deficits Cerebellar Function: Normal Reflexes: Normal Skin: Dry, Normal Color, Warm Lymphatic: No Adenopathy EKG EKG : Pulse Rate (adult): 107 [place]: Normal Cardiac Rhythm: ST Block: None Hypertrophy: None ST: Normal Comments Concern for possible evidence of Brugada type 3 in lead V2 and possibly lead V3 although this is possibly an over-read. Patient was informed of these findings and instructed to follow up with his primary care provider for consideration of referral to cardiology for consideration of further workup/EPS study Was a procedure done? Was a procedure done?: No CP Differential Dx Differential Diagnosis: A-fib, A-Flutter, Anxiety / Panic Attack, Electrolyte Disorder, Hypoxia, MT, Pulmonary Embolus, Sinus Tachycardia, V-Tach, Other (anxiety) Differential Diagnosis: N/A Differential Diagnosis: Other (N/A) X-Ray, Labs, Meds, VS Vital Signs Date Time Temp Pulse Resp B/P (MAP) Pulse Ox O2 Delivery O2 Flow Rate FiO2 05/30/24 17:30 107 05/30/24 16:57 97.1 114 18 121/94 (103) 97 97.1 05/30/24 16:55 107 Lab Test 05/30/24 17:07 Range/Units White Blood Count 12.0 H 4.4-10.8 10^3/uL Red Blood Count 4.75 4.5-5.90 10^6/uL Hemoglobin 14.2 13.5-17.5 g/dL Hematocrit 42.8 41.0-53.0 % Mean Corpuscular Volume 90.1 80.0-100.0 fL Mean Corpuscular Hemoglobin 29.8 28.0-32.0 pg Mean Corpuscular Hemoglobin Concent 33.1 32.0-36.0 g/dL Red Cell Distribution Width 14.9 H 11.8-14.3 % Platelet Count 217 140-450 10^3/uL Mean Platelet Volume 8.6 6.9-10.8 fL Neutrophils (%) (Auto) 37.0-80.0 % Lymphocytes (%) (Auto) 10.0-50.0 % Monocytes (%) (Auto) 0.0-12.0 % Basophils (%) (Auto) 0.0-2.0 % Neutrophils # (Auto) 1.6-8.6 10 ^3/uL Lymphocytes # (Auto) 0.4-5.4 10 ^3/uL Monocytes # (Auto) 0-1.3 10 ^3/uL Differential Total Cells Counted 100.0 100 Neutrophils % (Manual) 61 37.0-80.0 Band Neutrophils % (Manual) 4 Lymphocytes % (Manual) 35 10.0-50.0 Monocytes % (Manual) 0 0-12 Eosinophils % (Manual) 0 0-7 Basophils % (Manual) 0 0.0-2.0 Metamyelocytes % (manual) 0 Myelocytes % (Manual) 0 Promyelocytes % (Manual) 0 Blast Cells % (Manual) 0 Reactive Lymphocytes 0 Platelet Estimate Adequate Sodium Level 142 136-145 mmol/L Potassium Level 3.6 3.5-5.1 mmol/L Chloride Level 107 98-107 mmol/L Carbon Dioxide Level 26 20-31 mmol/L Anion Gap 9 5-15 Blood Urea Nitrogen 18 9-23 mg/dL Creatinine 1.24 0.700-1.30 mg/dL Glomerular Filtration Rate Calc 77 >90 mL/min BUN/Creatinine Ratio 14.5 10.0-20.0 Serum Glucose 99 74-106 mg/dL Calcium Level 9.6 8.7-10.4 mg/dL Troponin I High Sensitivity 8 </=54 ng/L X-Ray, Labs, Meds, VS Comment 38-year-old male here today with a concern for palpitations in the setting of receiving bad news while at work. Vitals notable for tachycardia but otherwise unremarkable. EKG without evidence of acute ischemia although notable for questionable findings possibly concerning for Brugada which were discussed in detail with the patient. Stressed the importance of following up with his primary care provider for consideration of a referral to Cardiology for possible EPS study. Patient without any prior palpitations, syncope, chest pain, or any issues with exercise/exertion. No family history of sudden cardiac . No known family history of any cardiac issues. Troponin negative, doubt ACS. Patient was discharged home in stable condition ambulating with a steady gait in no distress. Doubt ACS, PE, pneumothorax, or arrhythmia. Time of 1ST Reevaluation: 05:20 Reevaluation 1ST: Unchanged Patient Education/Counseling: Diagnosis, Treatment, Prognosis, Need For Follow Up Family Education/Counseling: No Family Present Additional Information Previous medical encounters reviewed: N/A The following tests were ordered, and results were reviewed by me: N/A Additional Information was gathered from interviewing the following independent historians: N/A I reviewed and agreed with the following test results read by other providers: N/A I discussed treatment and results with medical personnel and: Patient Departure 1 Departure Time of Disposition: 19:20 Impression: Primary Impression: Palpitation Additional Impressions: Stress reaction Abnormal EKG Disposition: HOME / SELF CARE / HOMELESS Condition: Stable Discharged With: Self Critical Care Note Critical Care Time?: No Stability Stability form required: No Heart Score Heart Score: Heart Score Response (Comments) Value History N/A 0 EKG N/A 0 Age N/A 0 Risk Factors N/A 0 Troponin N/A 0 Total 0 DOM CARTWRIGHT May 30, 2024 17:30 JUAN DIEGO NICHOLSON MD May 30, 2024 18:21
[2024-05-30 17:39] LABS: Chloride 107 mmol/L (98-107); Potassium 3.6 mmol/L (3.5-5.1); Sodium 142 mmol/L (136-145)
[2024-05-30 17:40] LABS: Anion Gap 9 (5-15); Calcium 9.6 mg/dL (8.7-10.4); Carbon Dioxide 26 mmol/L (20-31)
[2024-05-30 17:45] LABS: BUN/Creatinine Ratio 14.5 (10.0-20.0); Blood Urea Nitrogen 18 mg/dL (9-23); Glucose 99 mg/dL (74-106)
[2024-05-30 17:53] LABS: Basophils % (manual) 0 (0.0-2.0); Eosinophils % (manual) 0 (0-7); Metamyelocytes % 0; Monocytes % (manual) 0 (0-12)
[2024-05-30 17:54] LABS: Blast Cells 0; Myelocytes % 0; Promyelocytes % 0; Reactive Lymphocytes 0
--- NOTE | 2024-05-30 18:07 | ECG ---
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
[2024-05-30 18:48] LABS: Band Neutrophils % (manual) 4; Lymphocytes % (manual) 35 (10.0-50.0); Platelet Estimate Adequate
== END 2024-05-30 22:00 | disposition home or self-care (01) ==
LOC: EEVIPCON 16:33 → ER 16:33
DX: R00.2 Palpitations (principal); F43.9 Reaction to severe stress, unspecified; R94.31 Abnormal electrocardiogram [ECG] [EKG]; M19.90 Unspecified osteoarthritis, unspecified site; Z79.899 Other long term (current) drug therapy
CPT/HCPCS: 36415; 80048; 84484; 85007; 85027; 93005

== ENCOUNTER → 2024-07-07 | Outpatient (CLI) | payer BC ==
[2024-07-07 13:58] LABS: Urine Bacteria FEW /hpf (None Seen); Urine Blood Negative /uL (Negative); Urine Clarity Clear (Clear); Urine Color Light-Yellow (Yellow); Urine Mucus FEW (None Seen); Urine Protein, UAD 2+ (Negative); Urine Specific Gravity 1.023 (1.001-1.035); Urine Squamous Epithelial Cell None Seen /hpf (<5); Urine Urobilinogen Normal (Negative); Urine WBC 1 /HPF (0-3); Urine pH 6.5 (5.0-9.0)
[2024-07-07 13:59] LABS: Protein, Urine 189.5 mg/dL (1-14)
[2024-07-07 14:02] LABS: Creatinine, Urine 178.21 mg/dL (30.0-125.0); Urine Protein/Creatinine Ratio 1.06
[2024-07-07 14:05] LABS: Alanine Aminotransferase 30 U/L (7-40); Albumin 4.2 g/dL (3.2-4.8); Alkaline Phosphatase 54 U/L (46-116); Anion Gap 8 (5-15); Aspartate Aminotransferase 25 U/L (13-40); Blood Urea Nitrogen 12 mg/dL (9-23); Calcium 9.4 mg/dL (8.7-10.4); Carbon Dioxide 25 mmol/L (20-31); Chloride 107 mmol/L (98-107); Glucose 107 mg/dL (74-106); Potassium 3.5 mmol/L (3.5-5.1); Sodium 140 mmol/L (136-145); Total Protein 6.2 g/dL (5.7-8.2)
[2024-07-07 14:21] LABS: Basophils # (auto) 0.1 10 ^3/uL (0-0.2); Basophils % (auto) 1.1 % (0.0-2.0); Eosinophils # (auto) 0.3 10 ^3/uL (0-0.8); Eosinophils % (auto) 3.6 % (0.0-7.0); Hematocrit 40.7 % (41.0-53.0); Hemoglobin 13.6 g/dL (13.5-17.5); Lymphocytes # (auto) 2.3 10 ^3/uL (0.4-5.4); Lymphocytes % (auto) 24.6 % (10.0-50.0); Mean Corpuscular Hemoglobin 29.5 pg (28.0-32.0); Mean Corpuscular Hgb Conc. 33.4 g/dL (32.0-36.0); Mean Corpuscular Volume 88.3 fL (80.0-100.0); Monocytes % (auto) 10.6 % (0.0-12.0); Neutrophils # (auto) 5.6 10 ^3/uL (1.6-8.6); Neutrophils % (auto) 60.1 % (37.0-80.0); Platelet Count (auto) 180 10^3/uL (140-450); Red Blood Cells 4.61 10^6/uL (4.5-5.90); Red Cell Distribution Width 13.9 % (11.8-14.3); White Blood Cell 9.3 10^3/uL (4.4-10.8)
[2024-07-07 14:29] LABS: Erythrocyte Sedimentation Rate 7 mm/hr (0-20)
== END | disposition home or self-care (01) ==
LOC: LAB 13:17
PROVIDERS: ATTEND Student in an Organized Health Care Education/Training Program
DX: E11.22 Type 2 diabetes mellitus with diabetic chronic kidney disease (principal); N18.30 Chronic kidney disease, stage 3 unspecified; E11.65 Type 2 diabetes mellitus with hyperglycemia; N39.0 Urinary tract infection, site not specified; E21.3 Hyperparathyroidism, unspecified; R80.9 Proteinuria, unspecified; E55.9 Vitamin D deficiency, unspecified; D63.1 Anemia in chronic kidney disease; M10.9 Gout, unspecified
CPT/HCPCS: 36415; 80053; 81001; 82570; 84156; 85025; 85652; 87340

== ENCOUNTER 2024-10-06 12:18 | Outpatient (CLI) | payer BC ==
[2024-10-06 13:07] LABS: Hematocrit 42.6 % (41.0-53.0); Hemoglobin 14.3 g/dL (13.5-17.5); Mean Corpuscular Hemoglobin 28.4 pg (28.0-32.0); Mean Corpuscular Volume 84.5 fL (80.0-100.0); Nucleated Red Blood Cells % 0.0 %
[2024-10-06 13:08] LABS: Urine Protein, UAD 2+ (Negative)
[2024-10-06 13:24] LABS: Alanine Aminotransferase 22 U/L (7-40); Albumin 4.5 g/dL (3.2-4.8); Alkaline Phosphatase 67 U/L (46-116); Anion Gap 9 (5-15); BUN/Creatinine Ratio 10.8 (10.0-20.0); Blood Urea Nitrogen 11 mg/dL (9-23); Calcium 9.2 mg/dL (8.7-10.4); Carbon Dioxide 27 mmol/L (20-31); Chloride 106 mmol/L (98-107); Glucose 88 mg/dL (74-106); Potassium 3.7 mmol/L (3.5-5.1); Sodium 142 mmol/L (136-145); Total Protein 6.4 g/dL (5.7-8.2)
[2024-10-06 13:25] LABS: Bilirubin, Total 1.0 mg/dL (0.2-1.0)
[2024-10-06 13:26] LABS: Protein, Urine 179.4 mg/dL (1-14)
[2024-10-07 15:07] LABS: Anti-Nuclear Antibody Direct Negative (Negative)
== END 2024-10-06 17:00 | disposition home or self-care (01) ==
LOC: LAB 12:18
PROVIDERS: ATTEND Student in an Organized Health Care Education/Training Program
DX: E11.22 Type 2 diabetes mellitus with diabetic chronic kidney disease (principal); N18.30 Chronic kidney disease, stage 3 unspecified; E11.21 Type 2 diabetes mellitus with diabetic nephropathy; E21.3 Hyperparathyroidism, unspecified; E55.9 Vitamin D deficiency, unspecified; N39.0 Urinary tract infection, site not specified; D63.1 Anemia in chronic kidney disease; M10.9 Gout, unspecified; R80.9 Proteinuria, unspecified; M05.79 Rheumatoid arthritis with rheumatoid factor of multiple sites without organ or systems involvement; M31.7 Microscopic polyangiitis
CPT/HCPCS: 36415; 80053; 81001; 82570; 84156; 85025; 85652; 86038; 86141; 86160; 86256; 86431

== ENCOUNTER 2025-02-03 13:40 | Outpatient (CLI) | payer BC ==
[2025-02-03 14:43] LABS: Hematocrit 41.1 % (41.0-53.0); Hemoglobin 14.0 g/dL (13.5-17.5); Mean Corpuscular Hemoglobin 28.8 pg (28.0-32.0); Mean Corpuscular Volume 84.7 fL (80.0-100.0); Nucleated Red Blood Cells % 0.0 %
[2025-02-03 15:13] LABS: Alanine Aminotransferase 24 U/L (7-40); Albumin 4.3 g/dL (3.2-4.8); Alkaline Phosphatase 68 U/L (46-116); Anion Gap 9 (5-15); BUN/Creatinine Ratio 9.0 (10.0-20.0); Blood Urea Nitrogen 9 mg/dL (9-23); Calcium 9.2 mg/dL (8.7-10.4); Carbon Dioxide 25 mmol/L (20-31); Chloride 107 mmol/L (98-107); Glucose 87 mg/dL (74-106); Potassium 4.5 mmol/L (3.5-5.1); Sodium 141 mmol/L (136-145); Total Protein 6.6 g/dL (5.7-8.2)
[2025-02-03 15:14] LABS: Bilirubin, Total 1.0 mg/dL (0.2-1.0)
[2025-02-03 16:00] LABS: Protein, Urine 95.5 mg/dL (1-14)
== END 2025-02-03 17:00 | disposition home or self-care (01) ==
LOC: LAB 13:40
PROVIDERS: ATTEND Internal Medicine Rheumatology
DX: E66.9 Obesity, unspecified (principal); M05.79 Rheumatoid arthritis with rheumatoid factor of multiple sites without organ or systems involvement; M31.7 Microscopic polyangiitis
CPT/HCPCS: 36415; 80053; 82570; 82784; 84156; 85025; 85652; 86141